=== PATIENT | female | born 1970 | race Two or more races ===

== ENCOUNTER 2024-02-17 09:07 | Outpatient (REF) | payer MEDICAID, SELFPAY ==
--- NOTE | ~2024-02-17 | XR_ITS ---
EXAMINATION: XR WRIST, RIGHT CLINICAL INFORMATION: chronic right wrist pain, swelling COMPARISON: None available. TECHNIQUE: PA, lateral, and oblique views of the right wrist. FINDINGS: The bones and soft tissues are normal. No fracture. Alignment is anatomic with normal joint spaces. No erosions or abnormal soft tissue calcifications. XR/XR wrist RT min 3V IMPRESSION: Normal right wrist. Electronically signed by: Genaro Thompson MD 02/17/2024 02:11 PM GAVINO
== END 2024-02-17 09:08 | disposition home or self-care (01) ==
LOC: HO.HHCX 09:07
PROVIDERS: Visit Provider Registered Nurse
DX: M25.531 Pain in right wrist (principal); G89.29 Other chronic pain
CPT/HCPCS: 73110

== ENCOUNTER → 2024-02-17 09:08 | Outpatient (BNV) | payer MEDICAID, SELFPAY | PROVIDERS: Visit Provider Radiology Diagnostic Radiology | DX: M25.531 Pain in right wrist (principal) | CPT/HCPCS: 73110 ==

== ENCOUNTER 2024-06-02 | Outpatient (REF) | payer MEDICAID, SELFPAY ==
[2024-06-05 13:58] LABS: HPV Genotype 16 Negative (Negative); HPV Genotype 18 Negative (Negative); HPV High Risk Negative (Negative)
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
== END 2024-06-02 00:01 | disposition home or self-care (01) ==
LOC: HO.LNP
PROVIDERS: Visit Provider Advanced Practice Midwife
DX: N63.11 Unspecified lump in the right breast, upper outer quadrant (principal); N95.0 Postmenopausal bleeding
CPT/HCPCS: 87626; 88175

== ENCOUNTER 2024-06-02 13:43 | Outpatient (REF) | payer MEDICAID, SELFPAY ==
--- NOTE | ~2024-06-02 | US_ITS ---
EXAMINATION: US PELVIS CLINICAL INFORMATION: Postmenopausal bleeding. COMPARISON: None available. TECHNIQUE: Ultrasound of the pelvis is performed using both transabdominal and transvaginal transducers along with Doppler. Transvaginal imaging is performed due to inadequate visualization transabdominally. FINDINGS: Uterus: The uterus is anteverted , retroflexed, and measures 11.8 x 3.1 x 5.2 cm. Normal-appearing cervix. The double wall endometrial thickness is 3 mm. It is uniform. The uterus is smooth in contour and has normal myometrial echogenicity. No visible fibroid. Adnexa: Neither ovary could be definitively visualized. There is no pelvic ascites or fluid collection. There are no adnexal masses. US/US pelvic and transvaginal IMPRESSION: 1. Ovaries could not be visualized. 2. Normal-appearing uterus and endometrium. 3. No free pelvic fluid. Electronically signed by: Corwin Calles MD 06/02/2024 03:00 PM EDT
--- OUTSIDE RECORDS SUMMARY | 2024-06-02 16:54 | XMS_ITS | Encounter Summary ---
Author Organization [facility] Address [address] [place] [address] [address] [address] Care Team Providers Care Acidizer Name Role Phone Birdie Clayton Primary Care Provider Reason for Referral * Consultation (Routine) - Pending Review Specialty Diagnoses / Procedures Referred By Gee dugan Referred To Contact Family Medicine Diagnoses Chronic right-sided low back pain with right-sided sciatica Birdie Clayton FNP [address] [place] [address] Phone: tel: fax: Referral ID Status Reason Start Date Expiration Date Visits Requested Visits Authorized [id number] Pending Review Consult and Treat 06/01/2024 06/01/2025 1 1 Encounter Details Date Type Department Care Team (Late st Contact Info) Description 06/01/2024 Orders Only [facility] [address] [place], [place] [phone] Birdie Clayton FNP [address], [place] [id number] Chronic right-sided low back pain with right-sided sciatica (Primary Dx) Social History Tobacco Use Types Packs/Day Years Used Date Smoking Tobacco: Every Day Cigarettes Passive Smoke Exposure: Current Smokeless Tobacco: Never Alcohol Use Standard Drinks/Week Comments Never 0 (1 standard drink = 0.6 oz pur e alcohol) Depression Answer Date Recorded Patient Health Questionnaire-9 Score 11 06/01/2024 Patient Health Questionnaire-9 Score 11 06/01/2024 Last PHQ-9: Questionnaire Data Not on file 0 06/01/2024 Housing Stability Answer Date Recorded What is your housing situation today? I have kiersten bautista 03/12/[address] you li ve. Do you have problems with any of the following? None of the above 03/12/2024 Food Insecurity Answer Date Recorded Within the past 12 months, y ou worried that your food would run out before you got money to buy more: Sometimes True 2024 Within the past 12 months,th e food you bought just didn't last and you didn't have enough money to get more: Sometimes True 03/12/2024 Transportation Answer Date Recorded In the past 12 months, has l ack of transportation kept you from medical appts, meetings, work or from getting things needed for daily living? Yes, it has kept me from medical appointments or getting medications. 03/12/2024 Utilities Answer Date Recorded In the past 12 months, has t he electric, gas, oil or water company threatened to shut off services in your home? No 03/12/2024 Depression Answer Date Recorded Patient Health Questionnaire-2 Score 3 06/01/2024 Internet Access Answer Date Recorded Internet Access Q1 Yes 03/12/2024 Internet Access Q2 Not on file 03/12/2024 Comments Unknown Sex and Gender Information Value Date Recorded Sex Assigned at Female 03/13/2022 1:16 PM EST Legal Sex Female 10:46 AM EST Gender Identity Female 03/13/2022 1:16 PM EST Sexual Orientation Don't know 03/13/2022 1: 16 PM EST documented as of this encounter Plan of Treatment Upcoming Encounters Date Type Department Care Team (Late st Contact Info) Description 06/17/2024 10:30 AM EDT Clinical Support [facility] [address] [place] [address] Scheduled Referrals Name Type Priority Associated Diagnoses Orde r Schedule [facility]erral to [facility] Outpatient Referral Routine Chronic right-sided low back pain with right-sided sciatica Expected: 06/01/2024 (Approximate), Expires: 06/01/2025 documented as of this encounter Visit Diagnoses Diagnosis Chronic right-sided low back pain with right-sided sciatica- Primary documented in this encounter Additional Health Concerns Assessment Noted Time PHQ-9 Depression Total Score: 11 025 10:35 AM EDT documented as of this encounter Care Teams Acidizer Relationship Specialty Start Date End Date Birdie Clayton FNP [address] [place] [address] PCP - General Family Medicine 05/03/22 documented as of this encounter
--- OUTSIDE RECORDS SUMMARY | 2024-06-02 16:54 | XMS_ITS | Encounter Summary ---
Author Organization [employer] Address [address] [place] [address], [place] [address] Care Team Providers Care Tankage Grinder Operator Name Role Phone Birdie Clayton STOCK TRANSFER CLERK Primary Care Provider [phone] Reason for Referral * Imaging (STAT) - Closed Specialty Diagnoses / Procedures Referred By Contac t Referred To Contact Radiology Diagnoses Postmenopausal bleeding Procedures Us Pelvis complete Marii Graham CNM [address] [place] [address] Phone: tel: fax: [address] Phone: tel: fax: Referral ID Status Reason Start Date Expiration Date Visits Re quested Visits Authorized [id number] Closed 06/02/2024 06/02/2025 1 1 * Imaging (STAT) - Closed Specialty Diagnoses / Procedures Referred By Contac t Referred To Contact Radiology Diagnoses Postmenopausal bleeding Procedures US Pelvis Transvaginal Marii Graham CNM [address] [place] [address] Phone: tel: fax: [address] Phone: tel: fax: Referral ID Status Reason Start Date Expiration Date Visits Re quested Visits Authorized [id number] Closed 06/02/2024 06/02/2025 1 1 * Imaging (Urgent) - Authorized Specialty Diagnoses / Procedures Referred By Contac t Referred To Contact Radiology Diagnoses Unspecified lump in the right breast, upper outer quadrant Procedures BI Mammogram Diagnostic Tomosynthesis Bilateral Marii Graham CNM [address] [place] [address] Phone: tel: fax: [address] Phone: tel: fax: Referral ID Status Reason Start Date Expiration Date V isits Requested Visits Authorized [id number] Authorized 06/02/2024 06/02/2025 1 1 * Imaging (Urgent) - Authorized Specialty Diagnoses / Procedures Referred By Contac t Referred To Contact Radiology Diagnoses Unspecified lump in the right breast, upper outer quadrant Procedures BI US Breast Limited Right Marii Graham CNM [address] [place] [address] Phone: tel: fax: [address] Phone: tel: fax: Referral ID Status Reason Start Date Expiration Date V isits Requested Visits Authorized [id number] Authorized 06/02/2024 06/02/2025 1 1 Reason for Visit * Reason Comments Gynecologic Exam Encounter Details Date Type Department Care Team (Latest Contact Info) Description 06/02/2024 11:00 AM EDT Procedure Visit [facility] [address] [place] [address] Marii Graham CNM [address] [place], [place] Cervical cancer screening (Primary Dx); Unspecified lump in the right breast, upper outer quadrant; Postmenopausal bleeding; Mixed incontinence Social History Tobacco Use Types Packs/Day Years [...] Access Q2 Not on file 03/12/2024 Comments No Sex and Gender Information Value Date Recorded Sex Assigned at Female 03/13/2022 1:16 PM EST Legal Sex Female 10:46 AM EST Gender Identity Female 03/13/2022 1:16 PM EST Sexual Orientation Don't know 03/13/2022 1: 16 PM EST documented as of this encounter Last Filed Vital Signs Vital Sign Reading Time Taken Comments Blood Pressure 140/81 06/02/2024 10:39 AM EDT Pulse 70 06/02/2024 10:39 AM EDT Temperature 36.8 ??C (98.2 ??F) 06/02/2024 10:39 AM E DT Respiratory Rate 20 06/02/2024 10:39 AM EDT Oxygen Saturation 98% 06/02/2024 10:39 AM EDT Inhaled Oxygen Concentration - - Weight 76.3 kg (168 lb 3.2 oz) 06/02/2024 10:39 AM EDT Height 154.9 cm (5' 1 ) 06/02/2024 10:39 AM EDT Body Mass Index 31.78 06/02/2024 10:39 AM EDT documented in this encounter Progress Notes * Marii Graham CNM - 06/02/2024 11:00 AM EDT Subjective Patient ID: Flaca Ryder is a 53 y.o. female who presents for STEPDOWN NURSE visit Last pap 6 years ago, no prior abnormal. No history of STI/vaginal infections. Menopausal at 51. Had 7 days of bleeding in mid-April. No triggering factors. History of incontinence surgery years ago,notes worsening stress/urge incontinence x 1y. No other vaginal or urinary symptoms. No current partner, not sexually active in several years. Lives with 17 y old child. No personal fracture, no parental hip fracture. Some vasomotor symptoms. Pain from arthritis bothersome, has been referred to pain clinic. Review of Systems Genitourinary: Negative for dysuria, frequency, genital sores, hematuria, menstrual problem, pelvicpain, urgency, vaginal bleeding, vaginal discharge and vaginal pain. No abnormal pap, no breast pain, no breast mass, no nipple discharge Objective BP (!) 140/81 (BP Location: Left arm, Patient Position: Sitting, BP Cuff Size: Adult) Pulse 70 Temp 98.2 ??F (36.8 ??C) (Temporal) Resp 20 Ht 5' 1 (1.549 m) Wt 168 lb 3.2 oz (76.3 kg) SpO2 98% BMI 31.78 kg/m?? Physical Exam Constitutional: Appearance: Normal appearance. Chest: Breasts: Right: Mass present. No swelling, bleeding, inverted nipple, nipple discharge, skin change or tenderness. Left: Normal. No swelling, bleeding, inverted nipple, mass, nipple discharge, skin change or tenderness. Comments: Diffuse, mobile area of ? Fibrocystic tissue right breast UOQ, mobile. Not noticed on left breast Genitourinary: General: Normal vulva. Labia: Right: No rash, tenderness, lesion or injury. Left: No rash, tenderness, lesion or injury. Vagina: Normal. No signs of injury and foreign body. No vaginal discharge, erythema, tenderness, bleeding or lesions. Cervix: No cervical motion tenderness, discharge, friability, lesion, erythema, cervical bleeding or eversion. Uterus: Normal. Not enlarged and not tender. Adnexa: Right adnexa normal and left adnexa normal. Right: No mass, tenderness or fullness. Left: No mass, tenderness or fullness. Comments: Ovaries non palpable bilaterally. Fair tone with Kegels, mild cystocele with Valsalva. Limited view of cervix Lymphadenopathy: Upper Body: Right upper body: No supraclavicular or axillary adenopathy. Left upper body: No supraclavicular or axillary adenopathy. Neurological: Mental Status: She is alert. Psychiatric: Mood and Affect: Mood normal. Behavior: Behavior normal. Assessment/Plan Diagnoses and all orders for this visit: Cervical cancer screening - Pap Smear Cotest today. Repeat 5y if normal/HPV negative. Report further bleeding. BMD at 65, sooner if new risk factors. Try acupuncture for pain from arthritis, vasomotor symptoms. Unspecified lump in the right breast, upper outer quadrant - BI US Breast Limited Right; Future - BI Mammogram Diagnostic Tomosynthesis Bilateral; Future Will change screening mammogram to dx with right breast ultrasound. Postmenopausal bleeding - US Pelvis Transvaginal; Future - Us Pelvis complete; Future For pelvic ultrasound. Will refer to STEPDOWN NURSE if indicated by results. Report further bleeding. Mixed incontinence Kegels taught for stress incontinence. Let me know if not helpful in next 1-2m and I will refer to urogyn. documented in this encounter Plan of Treatment Upcoming Encounters Date Type Department Care Team (Late st Contact Info) Description 06/17/2024 10:30 AM EDT Clinical Support [facility] [address] [place] [address] Scheduled Orders Name Type Priority Associated Diagnoses Order Schedule Pap Smear Pathology and Cytology Routine Cervical cancer screening Ordered: 06/02/2024 BI US Breast Limited Right Imaging Urgent Unspecified lump in the right breast, upper outer quadrant Expected: 06/02/2024, Expires: 06/02/2025 BI Mammogram Diagnostic Tomosynthesis Bilateral Imaging Urgent Unspecified lump in the right breast, upper outer quadrant Expected: 06/02/2024, Expires: 08/02/2025 Us Pelvis complete Imaging STAT Postmenopausal bleeding Expected: 06/02/2024, Expires: 06/02/2025 documented as of this encounter Procedures Procedure Name Priority Date/Time Associated Diagnosis Comments US PELVIS TRANSVAGINAL STAT 06/02/2024 2:18 PM EDT Postmenopausal bleeding documented in this encounter Results * US Pelvis Transvaginal (06/02/2024 2:18 PM EDT) Anatomical Region Laterality Modality Pelvis Ultrasound 06/02/2024 2:18 PM EDT Narrative 06/02/2024 3:02 PM EDT ? [facility] ?[address] ?[place] [address] ? Ultrasound Report ? Signed ? Patient: Ryder,Flaca ?MR#: [id number] ? : 1970 ?Acct:[id number] ? Age/Sex: 53 / F ?ADM Date: 06/02/24 ? Loc: HO.US ? Attending Dr: Marii Graham CNM ? Ordering Physician: MARII GRAHAM CNM ?? Date of Service: 06/02/24 ?? Procedure(s): US pelvic and transvaginal ?? Accession Number(s): [id number] ? cc: MARII GRAHAM CNM; Birdie Clayton ? EXAMINATION: ? US PELVIS ? CLINICAL INFORMATION: ? Postmenopausal bleeding. ? COMPARISON: ?? None available. ? TECHNIQUE: ?? Ultrasound of the pelvis is performed using both transabdominal and ?? transvaginal transducers along with Doppler. Transvaginal imaging is ?? performed due to inadequate visualization transabdominally. ? FINDINGS: ?? Uterus: ?? The uterus is anteverted , retroflexed, and measures 11.8 x 3.1 x 5.2 ?? cm. ??Normal-appearing cervix. ? The double wall endometrial thickness is 3 mm. ??It is uniform. ? The uterus is smooth in contour and has normal myometrial echogenicity. ?No visible fibroid. ? Adnexa: ?? Neither ovary could be definitively visualized. ??There is no pelvic ?? ascites or fluid collection. There are no adnexal masses. ? US/ pelvic and transvaginal ?? IMPRESSION: ?? 1. Ovaries could not be visualized. ?? 2. Normal-appearing uterus and endometrium. ?? 3. No free pelvic fluid. ? Electronically signed by: ??Corwin Calles MD ??06/02/2024 03:00 PM EDT RP ? Dictated By: ?Corwin Calles MD ? Signed By: ?<Electronically signed by Corwin Calles MD in OV> ?06/02/24 1500 ? DD/ 1418 ? TD/TT: 06/02/24 1428 ? Aircraft De Icer Installer: ? Procedure Note Yolande Crowe - 06/02/2024 [place] [address] Ultrasound Report Signed Patient: Robbi Ryder#: [id number] : 1970Acct:[id number] Age/Sex: 53 / FADM Date: 06/02/24 Loc: HO.US Attending Dr: Marii Graham CNM Ordering Physician: MARII GRAHAM CNM Date of Service: 06/02/24 Procedure(s): US pelvic and transvaginal Accession Number(s): [id number] cc: MARII GRAHAM CNM; [facility] EXAMINATION: US PELVIS CLINICAL INFORMATION: Postmenopausal bleeding. COMPARISON: None available. TECHNIQUE: Ultrasound of the pelvis is performed using both transabdominal and transvaginal transducers along with Doppler. Transvaginal imaging is performed due to inadequate visualization transabdominally. FINDINGS: Uterus: The uterus is anteverted , retroflexed, and measures 11.8 x 3.1 x 5.2 cm. Normal-appearing cervix. The double wall endometrial thickness is 3 mm. It is uniform. The uterus is smooth in contour and has normal myometrial echogenicity. No visible fibroid. Adnexa: Neither ovary could be definitively visualized. There is no pelvic ascites or fluid collection. There are no adnexal masses. US/US pelvic and transvaginal IMPRESSION: 1. Ovaries could not be visualized. 2. Normal-appearing uterus and endometrium. 3. No free pelvic fluid. Electronically signed by: Corwin Calles MD 06/02/2024 03:00 PM EDT Dictated By: Corwin Calles MD Signed By: <Electronically signed by Corwin Calles MD in OV> 06/02/24 1500 DD/ 1418 TD/TT: 06/02/24 1428 Aircraft De I[employer] Installer: us Marii Graham CNM IMG US PROCEDURES Final R esult documented in this encounter Visit Diagnoses Diagnosis Cervical cancer screening- Primary Screening for malignant neoplasm of the cervix Unspecified lump in the right breast, upper outer quadrant Postmenopausal bleeding Mixed incontinence Mixed incontinence urge and stress (male)(female) documented in this encounter Additional Health Concerns Assessment Noted Time PHQ-9 Depression Total Score: 11 025 10:35 AM EDT documented as of this encounter Care Teams Tankage Grinder Operator Relationship Specialty Start Date End Date Birdie Clayton FNP [address] [place] [address] PCP - General Family Medicine 05/03/22 documented as of this encounter
--- OUTSIDE RECORDS SUMMARY | 2024-06-02 16:54 | XMS_ITS | Encounter Summary ---
Author Organization [employer] Address [address] [facility] [address] [place] [address] Care Team Providers Care Supervisor Compressed Yeast Name Role Phone Birdie Clayton CUT ROLL MACHINE OPERATOR Primary Care Provider Encounter Details Date Type Department Care Team (Latest Contact Info) Description 06/01/2024 Travel Social History Tobacco Use Types Packs/Day Years [...] your housing situation today? I have kiersten lily 03/12/[address] you li [...] Description 06/17/2024 10:30 AM EDT Clinical Support [facility] [address] [place] [address] documented as of this encounter Visit Diagnoses Not on filedocumented in this encounter Additional Health Concerns Assessment Noted Time PHQ-9 Depression Total Score: 11 025 10:35 AM EDT documented as of this encounter Care Teams Supervisor Compressed Yeast Relationship Specialty Start Date End Date Birdie Clayton FNP [address] [place] [address] PCP - General Family Medicine 05/03/22 documented as of this encounter
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
--- OUTSIDE RECORDS SUMMARY | 2024-06-02 16:54 | XMS_ITS | Encounter Summary ---
Author Organization [employer] Address [address] [facility] [address] [place] [address] Care Team Providers Care Paper Carrier Name Role Phone Birdie Clayton SPORTS BOOK WRITER Primary Care Provider Encounter Details Date Type Department Care Team (Late st Contact Info) Description 01/15/2023 Abstract [facility] MEDICINE [address] [place], [place] [phone] Justyna Couch Social History Tobacco Use Types Packs/Day Years Used Date Smoking Tobacco: Every Day Cigarettes Smokeless Tobacco: Never Alcohol Use Standard Drinks/Week Comments Never 0 (1 standard drink = 0.6 oz pur e alcohol) Depression Answer Date Recorded Patient Health Questionnaire-9 Score 24 05/03/2022 Housing Stability Answer Date Recorded What is your housing situation today? I have housing today, but I am worried about losing housing in the future 12/18/[address] you li ve. Do you have problems with any of the following? None of the above 12/18/2022 Food Insecurity Answer Date Recorded Within the past 12 months, y ou worried that your food would run out before you got money to buy more: Never True 12/18/2022 Within the past 12 months,th e food you bought just didn't last and you didn't have enough money to get more: Never True Transportation Answer Date Recorded In the past 12 months, has l ack of transportation kept you from medical appts, meetings, work or from getting things needed for daily living? No 12/18/2022 Utilities Answer Date Recorded In the past 12 months, has t he electric, gas, oil or water company threatened to shut off services in your home? No 12/18/2022 Depression Answer Date Recorded Patient Health Questionnaire-2 Score 6 05/03/2022 Comments Unknown Sex and Gender Information Value [...] Description 06/17/2024 10:30 AM EDT Clinical Support [facility] MEDICINE [address] [place] [address] documented as of this encounter Visit Diagnoses Not on filedocumented in this encounter Additional Health Concerns Assessment Noted Time PHQ-9 Depression Total Score: 24 023 9:22 AM EDT documented as of this encounter Care Teams Paper Carrier Relationship Specialty Start Date End Date Birdie Clayton FNP [address] [place] [address] PCP - General Family Medicine 05/03/22 documented as of this encounter
--- OUTSIDE RECORDS SUMMARY | 2024-06-02 16:54 | XMS_ITS | Encounter Summary ---
Author Organization [employer] Address [address] [facility] [address] [place] [address] Care Team Providers Care Wireless Construction Manager Name Role Phone Birdie Clayton [facility] Primary Care Provider [phone] Reason for Visit * Reason Comments Med Refill Encounter Details Date Type Department Care Team ([facility] st Contact Info) Description 04/30/2024 Refill [facility] MEDICINE [address] [place], [place] [phone] Birdie Clayton [facility] [address] [place] [address] Anxiety Social History Tobacco Use Types Packs/Day Years Used Date Smoking Tobacco: Every Day Cigarettes Passive Smoke Exposure: Current Smokeless Tobacco: Never Alcohol Use Standard Drinks/Week Comments Never 0 (1 standard drink = 0.6 oz pur e alcohol) Depression Answer Date Recorded Patient Health Questionnaire-9 Score 24 01/29/2024 Patient Health Questionnaire-9 Score 24 01/29/2024 Last PHQ-9: Questionnaire Data Not on file 1 03/31/2023 Housing Stability Answer Date Recorded What is [...] Date Recorded Patient Health Questionnaire-2 Score 6 01/29/2024 Internet Access Answer Date Recorded Internet Access [...] Description 06/17/2024 10:30 AM EDT Clinical Support [facility] MED[facility] [address] [place] [address] documented as of this encounter Visit Diagnoses Diagnosis Anxiety Anxiety state, unspecified documented in this encounter Additional Health Concerns Assessment Noted Time PHQ-9 Depression Total Score: 24 024 10:11 AM EST documented as of this encounter Care Teams Wireless Construction Manager Relationship Specialty Start Date End Date Birdie Clayton FNP [address] [place] [address] PCP - General Family Medicine 05/03/22 documented as of this encounter
--- OUTSIDE RECORDS SUMMARY | 2024-06-02 16:54 | XMS_ITS | Encounter Summary ---
Author Organization [facility] [employer] [facility] Address [address] [facility] [address] h [address] [place] [phone] Care Team Providers Care Marine Fireman Name Role Phone Birdie Clayton [facility] Primary Care Provider Reason for Visit * Reason Comments Med Refill Encounter Details Date Type Department Care Team (Late st Contact Info) Description 05/21/2024 Refill [facility] MED[facility]INE [address] [place], [place] [phone] Birdie Clayton [facility] [address] [place] [address] Chronic bilateral low back pain without sciatica; Anxiety Social History Tobacco Use Types Packs/Day [...] PM EST documented as of this encounter Miscellaneous Notes * Telephone Encounter - Celeste Pandey - 06/02/2024 3:37 PM EDT I called the pt to offer a CDTM Smoking appt, pt wasn't at home and asked to be call tomorrow documented in this encounter Plan of Treatment Upcoming Encounters Date Type Department Care Team (Late st Contact Info) Description 06/17/2024 10:30 AM EDT Clinical Support [facility] MEDICINE [address] [place] [address] documented as of this encounter Visit Diagnoses Diagnosis Chronic bilateral low back pain without sciatica Anxiety Anxiety state, unspecified documented in this encounter Additional Health Concerns Assessment Noted Time PHQ-9 Depression Total Score: 24 024 10:11 AM EST documented as of this encounter Care Teams Marine Fireman Relationship Specialty Start Date End Date Birdie Clayton FNP [address] [place] [address] PCP - General Family Medicine 05/03/22 documented as of this encounter
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
--- OUTSIDE RECORDS SUMMARY | 2024-06-02 16:54 | XMS_ITS | Encounter Summary ---
Author Organization [employer] Address [address] [facility] 7t [place] [address] Care Team Providers Care Construction Safety Manager Name Role Phone Birdie Clayton CUSTOMER SUPPORT PROFESSIONAL Primary Care Provider [phone] Encounter Details Date Type Department Care Team (Latest Contact Info) Description 06/02/2024 Travel Social History Tobacco Use Types Packs/Day [...] Description 06/17/2024 10:30 AM EDT Clinical Support [facility] [address] [place] [address] documented as of this encounter Visit Diagnoses Not on filedocumented in this encounter Additional Health Concerns Assessment Noted Time PHQ-9 Depression Total Score: 11 025 10:35 AM EDT documented as of this encounter Care Teams Construction Safety Manager Relationship Specialty Start Date End Date Birdie Clayton FNP [address] [place] [address] PCP - General Family Medicine 05/03/22 documented as of this encounter
== END 2024-06-02 13:44 | disposition home or self-care (01) ==
LOC: HO.US 13:43
PROVIDERS: PCP Registered Nurse; Visit Provider Advanced Practice Midwife
DX: N95.0 Postmenopausal bleeding (principal)
CPT/HCPCS: 76830; 76856

== ENCOUNTER → 2024-06-02 13:53 | Outpatient (BNV) | payer MEDICAID, SELFPAY | PROVIDERS: PCP Registered Nurse; Visit Provider Radiology Diagnostic Radiology | DX: N95.0 Postmenopausal bleeding (principal) | CPT/HCPCS: 76830; 76856 ==

== ENCOUNTER 2024-06-03 09:19 | Outpatient (AMB) | payer MEDICAID, SELFPAY ==
--- NOTE | 2024-06-03 09:25 | A.OFFVIS_ITS ---
Vital Signs 06/03/24 09:36 Height 5 ft 1 in Weight 169 lb BMI 31.9 BP 161/73 H Blood Pressure Location Rt brachial Position Sitting Pulse 72 Intake Visit Reasons: External hemorrhoids Intake Note: Patient referred by Dr. Flores Jeff for external hemorrhoids. Present for months. Patient c/o: constipation. Miralax not helping. Eats high fiber products. Of note: GI waitlist for screening colonoscopy. Accompanied by: Self / Same As Patient Allergies No Known Allergies Allergy (Unverified 06/03/24 09:31) HPI Comments Details: Patient presents with a longstanding history of symptomatic hemorrhoids. She has had this since her pregnancies which over 30 years ago. She complains of pain more bleeding, and swelling. She was hard bowel movements were stone help the situation. She has never had colonoscopy before. She otherwise tolerating a diet. Although infrequently does occasional anorectal intercourse. This has not been recently. No change in stool caliber. No other anorectal symptoms. Chart was reviewed and patient evaluated. [facility] Medical History (Updated 06/03/24 @ 09:33 by VINCE Mason) Muscle spasms of both lower extremities Sciatica Arthritis Depression Surgical History (Updated 06/03/24 @ 09:58 by Harry Sparrow MD) Hx laparoscopic cholecystectomy Hx of section Social History (Updated 06/03/24 @ 09:35 by VINCE Mason) Alcohol intake: current Alcohol intake frequency: holidays/special occasions only Cigarettes Per Day: 2 Substance Use Type: Marijuana Physical Exam Vital Signs: Last Vital Signs Pulse 72 06/03/24 09:36 BP 161/73 H 06/03/24 09:36 BMI result Body Mass Index 31.9 Chest Other: Chest sounds bilaterally, HS 1 in 2 GI Other: Abdomen is soft, benign. Rectal exam demonstrates several large external and internal hemorrhoids. Incidental finding is a roughly 4 x 3 cm left mid buttock sebaceous cyst. Assessment & Plan Assessment & Plan (1) Hemorrhoid: Code(s): K64.9 - Unspecified hemorrhoids Category: Surgical (2) Sebaceous cyst: Code(s): L72.3 - Sebaceous cyst Category: Surgical Plan Patient would like to have these hemorrhoids excised. Risks, benefits, and alternatives of the procedure reviewed with the patient included but not limited to bleeding, infection, significant pain, numbness, pain, scarring, incontinence and the patient wishes to proceed. All questions answered. We will also arrange for left mid buttock cyst excision which he would also like to have removed. Risks, benefits, alternatives of this were reviewed with the patient was well and included but not limited to bleeding, infection, recurrence, numbness, pain, scarring the patient wished to proceed. All questions answered. Patient will receive a many bowel prep day prior. Coding Level of Care Code New Pt Level 5 (44230) Diagnoses Hemorrhoid K64.9 Sebaceous cyst L72.3
[2024-06-03 09:36] VITALS: BP 161/73; PULSE 72; BMI 31.9
--- OUTSIDE RECORDS SUMMARY | 2024-06-03 10:12 | XMS_ITS | Encounter Summary ---
Author Organization [employer] [facility] Address [address] [place] [address] Care Team Providers Care Rn Recruitment Name Role Phone Birdie Clayton Primary Care Provider [phone] Reason for Referral * Consultation (Routine) - Authorized Specialty Diagnoses / Procedures Referred By Gee dugan Referred To Contact Orthopaedic Surgery Diagnoses Chronic pain of right wrist Birdie Clayton FNP [address] [place] [address] Phone: tel: fax: [facility] [address] [place] [address] Drive [address] [place], [place] Phone: tel: fax: Referral ID Status Reason Start Date Expiration Date Visits Requested Visits Authorized [id number] Authorized Specialty Services Required 06/01/2024 06/01/2025 6 6 * Consultation (Routine) - Pending Review Specialty Diagnoses / Procedures Referred By Gee dugan Referred To Contact Pharmacy Diagnoses Tobacco dependence Birdie Clayton FNP [address] [place] [address] Phone: tel: fax: Referral ID Status Reason Start Date Expiration Date Visits Requested Visits Authorized [id number] Pending Review Consult and Treat 06/01/2024 06/01/2025 1 1 * Consultation (Routine) - Closed Specialty Diagnoses / Procedures Referred By Gee dugan Referred To Contact Physical Therapy Diagnoses Chronic right-sided low back pain with right-sided sciatica Birdie Clayton FNP [address] [place] [address] Phone: tel: fax: [facility] Physical Therapy [address] [place], [place] Phone: tel: fax: Referral ID Status Reason Start Date Expiration Date V isits Requested Visits Authorized [id number] Closed Specialty Services Required 06/01/2024 06/01/2025 20 20 Reason for Visit * Reason Comments Follow-up Encounter Details Date Type Department Care Team ([facility] st Contact Info) Description 06/01/2024 9:45 AM EDT Office Visit [facility] [address] [place], [place] [phone] Birdie Clayton FNP [address] [place] [address] Essential hypertension (Primary Dx); Chronic right-sided low [...] in this encounter Progress Notes * [facility], DIPLOMATIC OFFICER - 06/01/2024 9:45 AM EDT SUBJECTIVE: Flaca [...] drug use: Occasional crack use when in [place] (has not used when in [place]) Patient Active Problem List Diagnosis Essential hypertension [...] de Quervain's tenosynovitis - Will refer to [facility] Ortho for further evaluation Anxiety/panic - Accepts [...] facility-administered medications on file prior to visit. Danish Translation: Provided by [facility] staff member VINCE Esquivel documented in this encounter Plan of Treatment Upcoming Encounters Date Type Department Care Team (Late st Contact Info) Description 06/17/2024 10:30 AM EDT Clinical Support [facility] [address] [place] [phone] Scheduled Referrals Name Type Priority Associated Diagnoses [...] EDT NSR. ??See scanned report. Birdie Clayton [facility] ECG ORDERABLES Final Result documented in this [...] documented as of this encounter Care Teams Rn Recruitment Relationship Specialty Start Date End Date Birdie ClaytonCHUN [address] [place] [address] PCP - General Family Medicine 05/03/22 documented as of this encounter
--- OUTSIDE RECORDS SUMMARY | 2024-06-03 10:12 | XMS_ITS | Clinical Summary ---
Author Organization [employer] Address [address] [place] [address] 7t [place] [address] Care Team Providers Care Stenotypist Name Role Phone Birdie Clayton TOP TRIMMER Primary Care Provider [phone] Allergies No known active allergies Medications * [...] 9:36 AM EDT): Patient of [facility] here for a physical exam required [...] 11:00 AM EDT Procedure Visit [facility] [address] [place] [address] Silvino Graham CNM Cervical cancer screening (Primary Dx); Unspecified lump in the right breast, upper outer quadrant; Postmenopausal bleeding; Mixed incontinence 06/02/2024 Travel 06/01/2024 9:45 AM EDT Office Visit [facility] [address] [place] [address] Birdie Clayton FNP Essential hypertension (Primary Dx); Chronic right-sided low back pain with right-sided sciatica; Chronic pain of right wrist; Tobacco dependence; Dietary counseling; Exercise counseling 06/01/2024 Orders Only [facility] [address] [place] [address] Birdie Clayton FNP Chronic right-sided low back pain with right-sided sciatica (Primary Dx) 06/01/2024 Travel 05/21/2024 Patient Outreach [facility] [address] [place] [address] Birdie Clayton FNP Pre-visit Planning (SDOH screening completed on 03/12/2024) 05/21/2024 Refill [facility] [address] [place] [address] Birdie Clayton FNP Chronic bilateral low back pain without sciatica; Anxiety 05/12/2024 10:30 AM EDT Office Visit [facility] [address] [place] [address] Tarka, Meenakshi, OD Macular corneal dystrophy of both eyes (Primary Dx); Other disorders of optic nerve, not elsewhere classified, right eye; Combined forms of age-related cataract of both eyes 05/12/2024 Travel 05/08/2024 Telephone [facility] [address] [place] [address] Birdie Clayton FNP No Show 05/07/2024 Telephone [facility] [address] [place] [address] ClintonBirdie [facility] chart prep 05/01/2024 Population Health Risk Score [facility] [address] [place] [phone] Provider, Population Health Generic 04/30/2024 9:30 AM EDT Office Visit [facility] [address] [place] [address] Ernesto Langford MD Breast cancer screening by mammogram (Primary Dx); Colon cancer screening; Cervical cancer screening; Routine physical examination; Encounter for immunization 04/30/2024 Refill [facility] [address] [place] [address] Birdie Clayton FNP Anxiety 04/30/2024 Patient Outreach [address] [address] ClintonBirdie TOP TRIMMER Pre-visit Planning ((Unable to reach for PVP screening, LVM)) 04/30/2024 Travel 04/20/2024 Patient Outreach [facility] [address] [place] [address] ClintonBirdie FNP Pre-visit Planning (SDOH screening was completed on 03/12/2024) 04/09/2024 9:00 AM EST Office Visit [facility] [address] [place] [address] Meenakshi Laws, OD Other disorders of optic nerve, not elsewhere classified, right eye (Primary Dx); Reduced visual acuity; Macular corneal dystrophy of both eyes; Combined forms of age-related cataract of both eyes; Regular astigmatism, bilateral; Dr[place]en of macula of both eyes 04/09/2024 Travel 04/08/2024 Travel 03/16/2024 Telephone [facility] [address] [place] [address] Birdie Clayton FNP Chart Prep 03/12/2024 Patient Outreach [address] [address] ClintonBirdie FNP Care Coordination ([facility] outreach for SDOH PT-1 and food needs-referral completed /) 03/12/2024 Patient Outreach [address] [address] Birdie Clayton FNP Pre-visit Planning (SDOH Screening positive and Tobacco screening negative) 03/12/[address] [address] Birdie Clayton FNP Letter for Housing (The patient requested a lettter, for [employer]. She stated that she has an apartment, but does not have furniture. They agreed to provide her with a voucher for furniture, if she provides them with a letter of necessity from her PCP.) 03/12/2024 Telephone [facility] [address] [place] [address] Day Swartz, RN 03/11/2024 Orders Only [facility] [address] [place] [address] [facility] Mixed hyperlipidemia (Primary Dx) 03/06/2024 1:00 PM EST Office Visit [facility] [address] [place] [address] Elvi Phillips MD External thrombosed hemorrhoids (Primary Dx) 03/06/2024 Orders Only [facility] [address] [place] [address] [facility] 03/06/2024 Travel 03/06/2024 Telephone [facility] [address] [place] [address] Sarika Guillen, FLORESITA [employer]spot 03/06/[address] [address] Sarika Guillen, pipeline operator from Last 3 Months Immunizations Name Administration [...] 10:30 AM EDT Clinical Support [facility] [address] [place] [address] Health Maintenance Due Date Last [...] EDT Narrative 06/02/2024 3:02 PM EDT ? [facility] ?[address] ?[place] [address] ? Ultrasound Report ? Signed ? Patient: Ryder,Flaca ?MR#: [id number] ? : 1970 ?Acct:[id number] ? Age/Sex: 53 / F ?ADM Date: 06/02/24 ? Loc: HO.US ? Attending Dr: Silvino Graham CNM ? Ordering Physician: SILVINO GRAHAM CNM ?? Date of Service: 06/02/24 ?? Procedure(s): US pelvic and transvaginal ?? Accession Number(s): [id number] ? cc: SILVINO GRAHAM CNM; Birdie Clayton [facility] ? EXAMINATION: ? US PELVIS ? CLINICAL [...] DD/ 1418 ? TD/TT: 06/02/24 1428 ? Straight Pin Making Machine Operator: ? Procedure Note Donreginater, Image - 06/02/[address] [address] Ultrasound Report Signed Patient: Robbi Ryder#: [id number] : 1970Acct:[id number] Age/Sex: 53 / FADM Date: 06/02/24 Loc: .US Attending Dr: Silvino Graham CNM Ordering Physician: SILVINO GRAHAM CNM Date of Service: 06/02/24 Procedure(s): US pelvic and transvaginal Accession Number(s): [id number] cc: SILVINO GRAHAM CNM; [facility] EXAMINATION: US [...] 06/02/24 1500 DD/ 1418 TD/TT: 06/02/24 1428 Straight Pin Making Machine Operator: Silvino Graham CNM IMG US PROCEDURES Final R esult * ECG 12 lead (06/01/2024 12:30 PM EDT) Chuck ForrestBirdie santos FNP - 06/01/2024 12:30 PM EDT NSR. ??See scanned report. Birdie [facility] ECG ORDERABLES Final Result * Automated [...] 1:23 PM EST) Syphilis Screen Nonreactive Nonreactive [facility] Blood 03/06/2024 1:23 PM EST 03/06/2024 4:00 PM EST [facility] TOP TRIMMER LAB BLOOD ORDERABLES Final Re sult [facility] [address] [place] [phone] * T-SPOT??.TB (03/06/2024 1:23 PM EST) T Spot TB Negative Negative [facility] Comment:A negative test resu lt does [...] as aquantitative test. TS PANEL A 0 [facility] TS PANEL B 0 [facility] Negative Control Passed [facility] Positive Control Passed [facility] Comment:For additional infor louie, please refer [email or web address]/faq/[email or web address](This link is being provided for informational/educational purposes only.)THIS TEST WAS PERFORMED AT:[employer]/[id number] [place] [address]ASNDAGXJEWELS AGUILAR MD,PHD 03/06/2024 1:23 PM EST 03/06/2024 4:00 PM EST [facility] LAB BLOOD ORDERABLES Final Re sult Performing Organization Address [facility] Co de Phone Number [facility] [address] [place] [phone] * Hepatitis C Antibody with Reflex to HCV, RNA, Quantitative, Real-Time PCR (03/06/2024 1:23 PM EST) Hepatitis C Antibody Nonreactive Nonreactive [facility] Comment:Antibodies to HCV no t detected; does not exclude early acuteHCV infection. Blood Venous blood specimen / Unknown 03/06/2024 1:23 PM EST 03/06/2024 4:00 PM EST [facility] LAB BLOOD ORDERABLES Final Re sult Performing Organization Address [facility] Co de Phone Number [facility] [address] [place] [phone] * Hepatitis B surface antigen, EIA (03/06/2024 1:23 PM EST) Hepatitis B Surface Ag Negative Negative [facility] Blood Venous blood specimen / Unknown 03/06/2024 1:23 PM EST 03/06/2024 4:00 PM EST [facility] LAB BLOOD ORDERABLES Final Re sult Performing Organization Address [facility] Co de Phone Number [facility] [address] [place] [address] [place] [phone] * Hepatitis B Core Antibody, Total (03/06/2024 1:23 PM EST) Hepatitis B Core Antibody Nonreactive Nonreactive [facility] Blood Venous blood specimen / Unknown 03/06/2024 1:23 PM EST 03/06/2024 4:00 PM EST [facility] LAB BLOOD ORDERABLES Final Re sult [facility] [address] [place] [address] [phone] * HIV-1/2 Antigen and Antibodies, Fourth Generation, with Reflexes (03/06/2024 1:23 PM EST) Pathologist [facility] HIV AB/AG Nonreactive Nonreactive [facility] Comment:HIV-1 p24 Ag and/or HIV-1/HIV-2 Ab not detected.A test result that is nonreactive does not exclude thepossibility of exposure to or infection with HIV-1 and/orHIV-2. Nonreactive results in this assay for individualswith prior exposure to HIV-1 and/or HIV-2 may be due toantigen and antibody levels that are below the limit ofdetection of this assay.[employer] [facility] [employer] HIV Ag/Ab Combo assay result andsupplemental assay results should be interpreted inconjunction with the patient's clinical presentation,history and other laboratory results. If the results areinconsistent with clinical evidence, additional testing issuggested to confirm the result. Blood Venous blood specimen / Unknown 03/06/2024 1:23 PM EST 03/06/2024 4:00 PM EST [facility] LAB BLOOD ORDERABLES Final Re sult [facility] [address] [place] [address] [phone] * Hepatitis B Surface Antibody, Qualitative (03/06/2024 1:23 PM EST) ~Hepatitis B Surface Antibody NONREACTIVE Nonreactive [facility] Comment:Nonreactive: < 8.00 mIU/mL Blood Venous blood specimen / Unknown 03/06/2024 1:23 PM EST 03/06/2024 4:00 PM EST [facility] LAB BLOOD ORDERABLES Final Re sult Performing Organization Address [facility] de Phone Number [facility] [address] [place] [phone] * (ABNORMAL) Lipid Panel, Standard (03/06/2024 1:23 PM EST) Pathologist [facility] Triglycerides 179(H) <150 mg/dL [facility] Comment:Desirable Triglyceri de: less than 150 mg/dLBorderline High Triglyceride 150-199 mg/dLHigh Triglyceride: 200-499 mg/dLVery High Triglyceride: greater than or equal to 5OO mg/dL Cholesterol 228(H) <200 mg/dL [facility] Comment:Desirable Cholestero l: less than 200 mg/dLBorderline High Cholesterol: 200-239 mg/dLHigh Cholesterol: greater than 239 mg/dL LDL Cholesterol Calculated 140(H) <100 mg/dL [facility] Comment:Desirable LDL: less than 100 mg/dLNear Optimal/Above Optimal LDL: 110- 129 mg/dLBorderline High LDL: 130-159 mg/dLHigh LDL: 160-189 mg/dLVery High LDL: greater than or equal to 190 mg/dL HDL Cholesterol 53 >40 mg/dL [facility] Comment:Desirable HDL: great er than 40 mg/dL Note: This HDL assay may give artificially low results in patients with liver disease. Blood Venous blood specimen / Unknown 03/06/2024 1:23 PM EST 03/06/2024 4:00 PM EST [facility] LAB BLOOD ORDERABLES Final Re sult Performing Organization Address [facility] Co de Phone Number [facility] [address] [place] [address] [phone] * (ABNORMAL) Comprehensive Metabolic Panel (03/06/2024 1:23 PM EST) Sodium 143 135 - 145 mmol/L [facility] Potassium 3.9 3.3 - 5.1 mmol/L [facility] Chloride 108 96 - 108 mmol/L [facility] Carbon Dioxide 28 22 - 29 mmol/L [facility] Anion Gap 11(L) 12 - 20 [facility] Urea Nitrogen (BUN) 12 9 - 16 mg/dL [facility] Creatinine, Serum 0.71 0.5 - 1.4 mg/dL [facility] Estimated Glomerular Filt Rate >60 [facility] Comment:Chronic Kidney Disea se: Estimated GFR < 60 mL/min/[id number] Kidney Disease: Estimated GFR < 15 mL/min/1.73m2 Glucose 89 60 - 115 mg/dL [facility] Calcium 9.4 8.4 - 10.2 mg/dL [facility] Bilirubin, Total 0.4 0.0 - 1.0 mg/dL [facility] Aspartate Amino Transferase 24 5 - 31 U/L [facility] Alanine Aminotransferase 17 0 - 31 U/L [facility] Total Protein 7.9 6.5 - 8.0 g/dL [facility] Albumin Level 4.4 3.5 - 5.0 g/dL [facility] Alkaline Phosphatase 88 39 - 117 U/L [facility] Blood Venous blood specimen / Unknown 03/06/2024 1:23 PM EST 03/06/2024 4:00 PM EST [facility] LAB BLOOD ORDERABLES Final Re sult [facility] [address] [place] [address] [phone] from Last 3 Months Insurance [facility] C3 HSN PARTIAL Care Teams Stenotypist Relationship Specialty Start Date End Date Birdie Clayton FNP [address] [place] [address] PCP - General Family Medicine 05/03/22
--- OUTSIDE RECORDS SUMMARY | 2024-06-03 10:12 | XMS_ITS | Encounter Summary ---
Author Organization [employer] Address [address] [facility] 7t [place] [address] Care Team Providers Care Golf Range Attendant Name Role Phone Birdie Clayton HOME DAY CARE PROVIDER Primary Care Provider [phone] Encounter Details Date Type Department Care Team (Late st Contact Info) Description 01/15/2023 Abstract [facility] [address] [place], [place] [phone] Justyna Couch Social History Tobacco Use Types [...] Description 06/17/2024 10:30 AM EDT Clinical Support [facility] [address] [place] [address] documented as of this encounter Visit Diagnoses Not on filedocumented in this encounter Additional Health Concerns Assessment Noted Time PHQ-9 Depression Total Score: 24 023 9:22 AM EDT documented as of this encounter Care Teams Golf Range Attendant Relationship Specialty Start Date End Date Birdie Clayton FNP [address] [place] [address] PCP - General Family Medicine 05/03/22 documented as of this encounter
--- OUTSIDE RECORDS SUMMARY | 2024-06-03 10:12 | XMS_ITS | Encounter Summary ---
Author Organization [employer] Address [address] [facility] [address]t [place] [address] Care Team Providers Care Lockstitch Cup Setter Name Role Phone Birdie Clayton BEE BREEDER Primary Care Provider [phone] Encounter Details Date Type Department Care Team [...] Description 06/17/2024 10:30 AM EDT Clinical Support [facility] [address] [place] [address] documented as of this encounter Visit Diagnoses Not on filedocumented in this encounter Additional Health Concerns Assessment Noted Time PHQ-9 Depression Total Score: 11 025 10:35 AM EDT documented as of this encounter Care Teams Lockstitch Cup Setter Relationship Specialty Start Date End Date Birdie Clayton FNP [address] [place] [address] PCP - General Family Medicine 05/03/22 documented as of this encounter
--- OUTSIDE RECORDS SUMMARY | 2024-06-03 10:12 | XMS_ITS | Encounter Summary ---
Author Organization [employer] Address [address] [facility] 7 [place] [address] Care Team Providers Care Supervisor Coil Winding Name Role Phone Birdie Clayton [facility] Primary Care Provider [phone] Reason for Visit * Reason Comments Med Refill Encounter Details Date Type Department Care Team ([facility] st Contact Info) Description 04/30/2024 Refill [facility] MEDICINE [address] [place], [place] [phone] Birdie Clayton [facility] [address] [place] [address] Anxiety Social History Tobacco Use Types Packs/Day [...] Description 06/17/2024 10:30 AM EDT Clinical Support [facility] MEDICINE [address] [place] [address] documented as of this encounter Visit Diagnoses Diagnosis Anxiety Anxiety state, unspecified documented in this encounter Additional Health Concerns Assessment Noted Time PHQ-9 Depression Total Score: 24 024 10:11 AM EST documented as of this encounter Care Teams Supervisor Coil Winding Relationship Specialty Start Date End Date Birdie Clayton FNP [address] [place] [address] PCP - General Family Medicine 05/03/22 documented as of this encounter
--- OUTSIDE RECORDS SUMMARY | 2024-06-03 10:12 | XMS_ITS | Encounter Summary ---
Author Organization [employer] Address [address] [facility] 7t h Floor [place] [id number] Care Team Providers Care Steam Drier Operator Name Role Phone Birdie Clayton [facility] Primary Care Provider [phone] Reason for Visit * Reason Comments Med Refill Encounter Details Date Type Department Care Team (Late st Contact Info) Description 05/21/2024 Refill [facility] MEDICINE [address] [place], [place] [phone] Birdie Clayton [facility] [address] [place] [address] Chronic bilateral low back pain without sciatica; [...] Clinical Support [facility] MEDICINE [address] [place] [address] documented as of this encounter Visit Diagnoses Diagnosis Chronic bilateral low back pain without sciatica Anxiety Anxiety state, unspecified documented in this encounter Additional Health Concerns Assessment Noted Time PHQ-9 Depression Total Score: 24 024 10:11 AM EST documented as of this encounter Care Teams Steam Drier Operator Relationship Specialty Start Date End Date Birdie Clayton FNP [address] [place] [address] PCP - General Family Medicine 05/03/22 documented as of this encounter
--- OUTSIDE RECORDS SUMMARY | 2024-06-03 10:12 | XMS_ITS | Encounter Summary ---
Author Organization [employer] Address [address] [place] [address] Care Team Providers Care Director Of Employee Development Name Role Phone Birdie Clayton ADAPTIVE PHYSICAL EDUCATION SPECIALIST Primary Care Provider [phone] Reason for Referral * Imaging (STAT) - Closed Specialty Diagnoses / Procedures Referred By Contac t Referred To Contact Radiology Diagnoses Postmenopausal bleeding Procedures Us Pelvis complete Marii Graham CNM [address] [place] [address] Phone: tel: fax: [address] Phone: tel: fax: Referral ID Status Reason Start Date Expiration Date Visits Re quested Visits Authorized [id number] Closed 06/02/2024 06/02/2025 1 1 * Imaging (STAT) - Closed Specialty Diagnoses / Procedures Referred By Contac t Referred To Contact Radiology Diagnoses Postmenopausal bleeding Procedures US Pelvis Transvaginal Marii Graham CNM [address] [place] [address] Phone: tel: fax: [address] Phone: tel: fax: Referral ID Status Reason Start Date Expiration Date Visits Re quested Visits Authorized [id number] Closed 06/02/2024 06/02/2025 1 1 * Imaging (Urgent) - Authorized Specialty Diagnoses / Procedures Referred By Contac t Referred To Contact Radiology Diagnoses Unspecified lump in the right breast, upper outer quadrant Procedures BI Mammogram Diagnostic Tomosynthesis Bilateral Marii Graham CNM [address] [place] [address] Phone: tel: fax: [address] Phone: tel: fax: Referral ID Status Reason Start Date Expiration Date V isits Requested Visits Authorized [id number] Authorized 06/02/2024 06/02/2025 1 1 * Imaging (Urgent) - Authorized Specialty Diagnoses / Procedures Referred By Contac t Referred To Contact Radiology Diagnoses Unspecified lump in the right breast, upper outer quadrant Procedures BI US Breast Limited Right Marii Graham CNM [address] [place] [address] Phone: tel: fax: [address] Phone: tel: fax: Referral ID Status Reason Start Date Expiration Date V isits Requested Visits Authorized [id number] Authorized 06/02/2024 06/02/2025 1 1 Reason for Visit * Reason Comments Gynecologic Exam Encounter Details Date Type Department Care Team (Latest Contact Info) Description 06/02/2024 11:00 AM EDT Procedure Visit [facility] MEDICINE [address] [place] [address] Marii Graham CNM [address] [place], [place] Cervical cancer screening (Primary Dx); Unspecified [...] a 53 y.o. female who presents for [facility] B[facility]CHER [facility] PICKER visit Last pap 6 years ago, no [...] Future For pelvic ultrasound. Will refer to FLOWER B[facility]CHER [facility] PICKER if indicated by results. Report further bleeding. Mixed incontinence Kegels taught for stress incontinence. Let me know if not helpful in next 1-2m and I will refer to urogyn. documented in this encounter Plan of Treatment Upcoming Encounters Date Type Department Care Team (Late st Contact Info) Description 06/17/2024 10:30 AM EDT Clinical Support [facility] MEDICINE [address] [place] [address] Scheduled Orders Name Type Priority Associated Diagnoses [...] EDT Narrative 06/02/2024 3:02 PM EDT ? [facility] ?[address] ?[place] [address] ? Ultrasound Report ? Signed ? Patient: Ryder,Flaca ?MR#: [id number] ? : 1970 ?Acct:[id number] ? Age/Sex: 53 / F ?ADM Date: 06/02/24 ? Loc: HO.US ? Attending Dr: Marii Graham CNM ? Ordering Physician: MARII GRAHAM CNM ?? Date of Service: 06/02/24 ?? Procedure(s): US pelvic and transvaginal ?? Accession Number(s): [id number] ? cc: MARII GRAHAM CNM; Birdie Clayton [...] DD/ 1418 ? TD/TT: 06/02/24 1428 ? Fuels Sales Representative: ? Procedure Note Yolande Crowe - 06/02/2024 [place] [address] Ultrasound Report Signed Patient: Robbi Ryder#: [id number] : 1970Acct:[id number] Age/Sex: 53 / FADM Date: 06/02/24 Loc: HO.US Attending Dr: Marii Graham CNM Ordering Physician: MARII GRAHAM CNM Date of Service: 06/02/24 Procedure(s): US pelvic and transvaginal Accession Number(s): [id number] cc: MARII GRAHAM CNM; [facility] EXAMINATION: US PELVIS CLINICAL INFORMATION: Postmenopausal [...] 06/02/24 1500 DD/ 1418 TD/TT: 06/02/24 1428 Fuels Sales Representative: us Marii Graham CNM IMG US PROCEDURES [...] documented as of this encounter Care Teams Director Of Employee Development Relationship Specialty Start Date End Date Birdie Clayton FNP [address] [place] [address] PCP - General Family Medicine 05/03/22 documented as of this encounter
--- OUTSIDE RECORDS SUMMARY | 2024-06-03 10:13 | XMS_ITS | Encounter Summary ---
Author Organization [employer] [facility] Address [address] [place] [address] [place] [address] Care Team Providers Care Map Drafter Name Role Phone Birdie Clayton Primary Care Provider [phone] Reason for Referral * Consultation (Routine) - Pending Review Specialty Diagnoses / Procedures Referred By Gee dugan Referred To Contact Family Medicine Diagnoses Chronic right-sided low back pain with right-sided sciatica Birdie Clayton FNP [address] [place] [address] Phone: tel: fax: Referral ID Status Reason Start Date Expiration Date Visits Requested Visits Authorized [id number] Pending Review Consult and Treat 06/01/2024 06/01/2025 1 1 Encounter Details Date Type Department Care Team (Late st Contact Info) Description 06/01/2024 Orders Only [facility] [address] [place], [place] [phone] Birdie Clayton FNP [address] [place], [place] [phone] Chronic right-sided low back pain with right-sided [...] Description 06/17/2024 10:30 AM EDT Clinical Support [facility] MEDICINE [address] [place] [address] Scheduled Referrals Name Type Priority Associated Diagnoses [...] documented as of this encounter Care Teams Map Drafter Relationship Specialty Start Date End Date Birdie Clayton FNP [address] [place] [address] PCP - General Family Medicine 05/03/22 documented as of this encounter
--- OUTSIDE RECORDS SUMMARY | 2024-06-03 10:13 | XMS_ITS | Encounter Summary ---
Author Organization [employer] Address [address] [facility] 7t [place] [address] Care Team Providers Care Cable Spooler Name Role Phone Birdie Clayton [facility] [employer] Primary Care Provider [phone] Encounter Details Date Type Department Care Team [...] 06/17/2024 10:30 AM EDT Clinical Support [facility] MEDICINE [address] [place] [address] documented as of this encounter Visit Diagnoses Not on filedocumented in this encounter Additional Health Concerns Assessment Noted Time PHQ-9 Depression Total Score: 11 025 10:35 AM EDT documented as of this encounter Care Teams Cable Spooler Relationship Specialty Start Date End Date Birdie Clayton FNP [address] [place] [address] PCP - General Family Medicine 05/03/22 documented as of this encounter
== END 2024-06-03 09:54 | disposition home or self-care (01) ==
PROVIDERS: PCP Registered Nurse; Referring Provider Registered Nurse; Visit Provider Surgery
DX: K64.9 Unspecified hemorrhoids (principal); L72.3 Sebaceous cyst
CPT/HCPCS: 99204

== ENCOUNTER → 2024-06-03 09:19 | Outpatient (BNVA) | payer MEDICAID, SELFPAY | PROVIDERS: PCP Registered Nurse; Referring Provider Registered Nurse; Visit Provider Surgery | DX: K64.9 Unspecified hemorrhoids (principal); L72.3 Sebaceous cyst | CPT/HCPCS: 99202 ==

== ENCOUNTER 2024-07-22 13:28 | Outpatient (REF) | payer MEDICAID, SELFPAY ==
--- NOTE | ~2024-07-22 | XR_ITS ---
EXAMINATION: XR WRIST NAVICULAR RIGHT HISTORY: M79.641 - Pain in right hand COMPARISON: Comparison is made with the prior examination dated 02/17/2024. FINDINGS: Four views of the right wrist including a scaphoid view are submitted. Osseous mineralization is normal. There is no fracture or dislocation. The joint spaces are preserved. The soft tissues are unremarkable. XR/XR wrist RT w scaphoid IMPRESSION: Unremarkable examination of the right wrist. Electronically signed by: Pedro Delgado MD 07/23/2024 07:59 AM EDT
== END 2024-07-22 13:29 | disposition home or self-care (01) ==
LOC: HO.HOSX 13:28
PROVIDERS: PCP Registered Nurse
DX: M79.641 Pain in right hand (principal); M25.531 Pain in right wrist; M65.4 Radial styloid tenosynovitis [de Quervain]; R20.0 Anesthesia of skin
CPT/HCPCS: 20550; 73110; 99212; J1100; J2003

== ENCOUNTER 2024-07-22 13:28 | Outpatient (AMB) | payer MEDICAID, SELFPAY ==
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
--- NOTE | 2024-07-22 14:01 | A.OFFVIS_ITS ---
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 Numbness and tingling in her bilateral hands and digits. Expresses right is greater than left. At night her symptoms are exacerbated and she is unable to get rest. She expresses constant daily pain, numbness and tingling in all her right hand digits. States her daily ADLs are affected such as dressing, bathing, opening jars or bottles, opening doors and etc. She takes gabapentin and OTC pain medication with no relief. 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 Numbness and tingling in her bilateral hands and digits. Expresses right is greater than left. At night her symptoms are exacerbated and she is unable to get rest. She expresses constant daily pain, numbness and tingling in all her right hand digits. States her daily ADLs are affected such as dressing, bathing, opening jars or bottles, opening doors and etc. She takes gabapentin and OTC srinivasa n medication with no relief. [facility] Medical History Anxiety GERD (gastroesophageal reflux disease) HTN (hypertension) Elevated cholesterol Muscle spasms of both lower extremities Sciatica Arthritis Depression Surgical History Hx laparoscopic cholecystectomy Hx of section Social History Alcohol intake: current Alcohol intake frequency: holidays/special occasions only Cigarettes Per Day: 2 Substance Use Type: Marijuana Office Procedures AMB Tendon Injection Tendon Injection 73002-Irsgdc Tendon Sheath Injection All charges added?: Procedure code (CPT) selection complete Assessment & Plan Assessment & Plan (1) De Quervain's tenosynovitis, right: Code(s): M65.4 - Radial styloid tenosynovitis [de Quervain] Category: Medical (2) Numbness of right hand: Code(s): R20.0 - Anesthesia of skin Category: Medical Plan History of Present Illness The patient is a 53-year-old female presenting with hand and wrist pain. She describes an inability to lift objects with her right hand and reports pain in the area. A bump is noted in the joints but has been deemed as a normal anatomical variant. Upon examination, the Patricia test was positive, suggesting De Quervain's tenosynovitis. There is also numbness and tingling in the hand, suggesting potential Carpal Tunnel Syndrome. An EMG and nerve conduction study are recommended for further evaluation. The patient's diabetes status is noted, but it does not affect the current assessment. Review of Systems - Musculoskeletal: Reports pain in the right hand and wrist, difficulty lifting, and a bump in the joints. Denies systemic symptoms. - Neurological: Reports numbness and tingling in the hand. Systems reviewed and are negative except as per HPI and below Physical Exam - Musculoskeletal- Positive Patricia test on the right wrist. Results - Tests and Diagnostics: Recommendation for EMG and nerve conduction study for further evaluation of hand symptoms. Procedure - Steroid injection: Obtained informed consent from the patient. A steroid injection was drawn up to be administered to the affected area of the wrist to manage inflammation related to De Quervain's tenosynovitis. Plan For De Quervain's tenosynovitis, a steroid injection is recommended to reduce inflammation, with informed consent obtained. Diagnostic EMG and nerve conduction studies are advised to investigate symptoms suggestive of Carpal Tunnel Syndrome. A supportive brace is suggested for managing wrist strain. Injection #1: The risks and benefits of a steroid injection including but not limited to risk of damage to blood vessels, nerves, tendons, infection, skin bleaching, failure to improve symptoms, increased pain, and possible need for further injections or other intervention were discussed with the patient and the patient wishes to proceed with the steroid injection. Once consent was obtained, I sterilely prepped the area over the 1st dorsal compartment of the right thumb. I then injected the 1st dorsal compartment with a combination of 1 mL of dexamethasone (4mg/ml), and 1% lidocaine. The patient tolerated the procedure well with no complications and good resolution of their symptoms prior to leaving clinic. If the patient continues to have pain 6-8 weeks following this injection, they may call to schedule appointment to discuss alternative treatment options Patient was informed and verbally consented to the use of an ambient scribe for clinic note documentation during this visit. Discussion Notes I discussed with the patient the likelihood of De Quervain's tenosynovitis and the possibility of Carpal Tunnel Syndrome. For the tendinitis, a steroid injection was recommended to help reduce inflammation, with the risks and benefits thoroughly explained. The patient agreed to the injection. For the neurological symptoms, I advised an EMG and nerve conduction study, stressing their importance in diagnosing potential Carpal Tunnel Syndrome and guiding further treatment. A supportive brace was offered. I emphasized returning for follow-up based on test outcomes or if symptoms persist. Patient Instructions - Consider receiving the steroid injection as discussed to help manage wrist pain. - Plan to get an EMG and nerve conduction study as suggested for further evaluation of hand symptoms. - Use a supportive wrist brace as necessary for additional support. - Follow up with any worsening symptoms or if there are concerns after the procedures. Orders: Orders XR wrist RT w scaphoid 07/22/24 M79.641 - Pain in right hand Coding Level of Care Code Est Pt Level 3 (49872) Diagnoses De Quervain's tenosynovitis, right M65.4 Numbness of right hand R20.0 CPT Codes Tendon Injection - Tendon Injection 1: 06294-Aoaegl Tendon Sheath Injection ([id number])
== END 2024-07-22 15:03 | disposition home or self-care (01) ==
LOC: HO.HOS 13:32
PROVIDERS: PCP Registered Nurse
DX: M65.4 Radial styloid tenosynovitis [de Quervain] (principal); R20.0 Anesthesia of skin
CPT/HCPCS: 20550; 99203

== ENCOUNTER → 2024-07-22 13:45 | Outpatient (BNV) | payer MEDICAID, SELFPAY | PROVIDERS: PCP Registered Nurse; Visit Provider Radiology Diagnostic Radiology | DX: M79.641 Pain in right hand (principal) | CPT/HCPCS: 73110 ==

== ENCOUNTER 2024-08-31 10:05 | Outpatient (REF) | payer MEDICAID, SELFPAY ==
--- NOTE | ~2024-08-31 | XR_ITS ---
EXAMINATION: XR HIP 2 OR MORE VIEWS RIGHT HISTORY: M25.559 - Pain in unspecified hip COMPARISON: There are no prior studies available for comparison. FINDINGS: A single AP view of the pelvis and two views of the right hip are submitted. Osseous mineralization is normal. There is no fracture or dislocation. The joint space is maintained. The soft tissues are unremarkable. XR/XR hip RT min 2V IMPRESSION: Unremarkable examination of the right hip. Electronically signed by: Pedro Delgado MD 08/31/2024 12:58 PM EDT
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
== END 2024-08-31 10:06 | disposition home or self-care (01) ==
LOC: HO.HOSX 10:05
PROVIDERS: Visit Provider Physician Assistant
DX: M54.16 Radiculopathy, lumbar region (principal); M25.551 Pain in right hip
CPT/HCPCS: 73502; 99212

== ENCOUNTER 2024-08-31 11:16 | Outpatient (AMB) | payer MEDICAID, SELFPAY ==
--- NOTE | 2024-08-31 11:33 | MHC.OFFVIS ---
Vital Signs 08/31/24 11:48 Height 5 ft 1 in Weight 177 lb BMI 33.4 Handedness Right Intake Visit Reasons: New prob- Right hip pain Intake Note: Flaca is a 53 year old female who presents today with her cousin for a evaluation of her right hip pain. patient reports ongoing pain for about 5 + years and it is getting worse. She mentions that her pain is on the glutes hip and it moves down her leg. She expresses that her pain makes her leg cramp up. Her pain is worse when she is walking, laying on her side, and sitting/standing for too long. Patient mentions that her pain was better when she was taking tramadol from her PCP. She is not interested in an injection and she is wanting a fill on her tramadol. Career Center Advisor Services: Career Center Advisor Offered & Declined Allergies latex Allergy (Intermediate, Verified 08/31/24 11:48) Rash HPI HPI New prob- Right hip pain: Details: Ms. Ryder is a 53 year old female who presents today accompanied by her cousin for evaluation of right hip pain. Patient reports ongoing pain greater than 5 years he reports that the pain is gradually getting worse. She reports that her pain is mostly located in the glutes and radiates down to the right foot. She also points to the lateral aspect of her hip and thigh were pain also radiates down to her foot. She denies any injury or trauma to the area. [facility] Medical History Anxiety GERD (gastroesophageal reflux disease) HTN (hypertension) Elevated cholesterol Muscle spasms of both lower extremities Sciatica Arthritis Depression Surgical History Hx laparoscopic cholecystectomy Hx of section Social History (Updated 08/31/24 @ 11:49 by Faustina Oquendo) Alcohol intake: current Alcohol intake frequency: holidays/special occasions only Patient Tobacco Use Status: Current everyday Tobacco user Cigarettes Per Day: 2 Substance Use Type: Marijuana Current occupational status: disabled Current occupation: right hand dominant Review of Systems Const All systems reviewed & are unremarkable except as noted in HPI and below Physical Exam Vital Signs: BMI result Body Mass Index 33.4 Const General: cooperative, healthy appearing and no acute distress Resp Effort & Inspection: normal respiratory effort and able to speak in complete sentences Extrem Other: Right hip: Full hip range of motion. Denies any groin pain with internal external rotation. Extreme difficulty with straight leg raise with radiation of pain from her lower back down the right lower extremity. No tenderness to palpation over the greater trochanteric bursa. 4/5 strength with resisted hip flexion, knee extension, abduction, and abduction. Assessment & Plan Assessment & Plan (1) Lumbar radiculopathy, right: Code(s): M54.16 - Radiculopathy, lumbar region Category: Medical Plan Ms. Ryder is a 53 year old female who presents today accompanied by her cousin for evaluation of right hip pain. Patient reports ongoing pain greater than 5 years he reports that the pain is gradually getting worse. She reports that her pain is mostly located in the glutes and radiates down to the right foot. She also points to the lateral aspect of her hip and thigh were pain also radiates down to her foot. She denies any injury or trauma to the area. While in the office today, I have recommended the patient see a window covering sales consultant to further evaluate her spine and radiation of symptoms down the right lower extremity. Patient did have x-rays that were obtained in the office today and negative for any acute fracture, dislocation or osteoarthritis. Although the patient does have some tenderness to palpation of the greater troch bursa this is not consistent with bursitis in this area as it radiates down the entire right lower extremity. In regards to the patient's tramadol I will defer any additional refills to her PCP for pain management. The patient was booked with Dr. Phelps prior to leaving the office today. She will follow up with Orthopedics PRN, sooner if needed. Orders: Orders XR hip RT min 2V Today M25.559 - Pain in unspecified hip Coding Level of Care Code New Pt Level 3 (93645) Diagnoses Lumbar radiculopathy, right M54.16
[2024-08-31 11:48] VITALS: BMI 33.4
== END 2024-08-31 12:16 | disposition home or self-care (01) ==
LOC: HO.HOS 11:16
PROVIDERS: PCP Registered Nurse; Visit Provider Physician Assistant
DX: M54.16 Radiculopathy, lumbar region (principal)
CPT/HCPCS: 99213

== ENCOUNTER → 2024-08-31 11:28 | Outpatient (BNV) | payer MEDICAID, SELFPAY | PROVIDERS: Visit Provider Radiology Diagnostic Radiology | DX: M25.551 Pain in right hip (principal) | CPT/HCPCS: 73502 ==

== ENCOUNTER 2024-10-12 12:14 | Outpatient (REF) | payer MEDICAID, SELFPAY ==
--- OUTSIDE RECORDS SUMMARY | 2024-10-12 13:31 | XMS_ITS | Clinical Summary ---
Author Organization [employer] Address [address] [facility] 7t [place] [address] Care Team Providers Care Retail Sales Assistant Name Role Phone Birdie Clayton [facility] Primary Care Provider [phone] Allergies No known active allergies Medications * [...] 9:36 AM EDT): Patient of [facility] here for a physical exam required [...] organization. Date Type Department Care Team Description 09/17/[address] [facility] MEDICINE [address] [place] [address] Birdie Clayton FNP chart prep 09/14/2024 Patient Outreach [facility] [address] [place] [address] Birdie Clayton FNP Pre-visit Planning ([facility] screening is completed) 08/04/2024 Travel 07/22/2024 Orders Only [facility] External Provider, [facility] from Last 3 Months Immunizations Immunization Administration [...] Care Team (Late st Contact Info) Description 11/06/2024 11:00 AM EDT Office Visit [facility] MEDICINE [address] [place] [address] [facility] [address] [place] [address] 11/12/2024 10:30 AM EDT Office Visit [facility] OPTOMETRY [address] [place] [address] Meenakshi Laws, OD [address] [place] [address] Health Maintenance Due Date Last Done Comments [...] W SCAPHOID Routine 07/22/2024 1:49 PM EDT HPV DNA, LOW/HIGH RISK Routine 06/02/2024 11:12 AM EDT PAP SMEAR Routine 06/02/2024 11:12 AM EDT Cervical cancer screening HEPATITIS C AB W/REFL TO HCV RNA, [...] PM EDT Narrative 07/23/2024 8:01 AM EDT [facility] [address] [place] [address] [place] [address] XRay Report Signed Patient: Flaca Ryder MR#: [id number] : 1970 Acct:[id number] Age/Sex: 53 / F ADM Date: 07/22/24 Loc: THEA Attending Dr: Matthieu BALES Ordering Physician: Matthieu Pedroza Date of Service: 07/22/24 Procedure(s): XR wrist RT w scaphoid Accession Number(s): [id number] cc: Matthieu Pedroza; [facility] EXAMINATION: XR WRIST NAVICULAR RIGHT HISTORY: M79.641 [...] 07/23/24 0759 DD/ 1349 TD/TT: 07/22/24 1349 Rock Room Worker: Procedure Note Donotuseinterpreter, Image - 07/23/2024 [facility] [address] [place] [address] [place] [address] XRay Report Signed Patient: Robbi Ryder#: [id number] : 1970Acct:[id number] Age/Sex: 53 / FADM Date: 07/22/24 Loc: HO.HOSX Attending Dr: Matthieu BALES Ordering Physician: Matthieu Pedroza Date of Service: 07/22/24 Procedure(s): XR wrist RT w scaphoid Accession Number(s): [id number] cc: Matthieu Pedroza; [facility] EXAMINATION: XR WRIST NAVICULAR RIGHT HISTORY: M79.641 [...] 07/23/24 0759 DD/ 1349 TD/TT: 07/22/24 1349 Rock Room Worker: [facility] External Provider IMG XR PROCEDURES Edited Result - Final * HPV DNA, Low/High Risk (06/02/2024 11:12 AM EDT) HPV High Risk Negative Negative [facility] HPV Genotype 16 Negative Negative [facility] HPV Genotype 18 Negative Negative [facility] Comment:HPV testing performe d at [facility] (CLIA#[id number]), [address] [place] [address].Testing for HPV was performed using the Teepix DAAYMI 6800system. The presence of HPV in the [...] AM EDT 06/03/2024 8:20 AM EDT Silvino LONG LAB BLOOD ORDERABLES Ana l Result [facility] [address] [place] [phone] * Pap Smear (06/02/2024 11:12 AM EDT) Swab Cervix uteri structure / Unknown 06/02/2024 11:12 AM EDT 06/03/2024 8:20 AM EDT Narrative [facility] - 06/08/2024 9:48 AM EDT ----- ------- Name: Flaca Ryder Age/Sex: 53/F : 1970 Unit#: [id number] Attend Dr: Re06/02/24 Status: PRE REF Location: [facility] Disch: ----- ------- SPEC : [id number] RECD: 06/03/24 STATUS: JOSÉ SANTO NUM: [id number] JEAN CALUDE: 06/02/24-[address] [facility] [address]: SILVINO GRAHAM [facility] ENTERED: 06/03/24 SP TYPE: Pap Smr OT : ORDERED: Pap Smear Interpretation Satisfactory for evaluation. Negative for intraepithelial lesion or malignancy. No endocervical cells seen. Coccobacilli consistent with shift in vaginal anel. HPV High Risk: Negative HPV Genotyping 16: Negative HPV Genotyping 18: Negative Clinical Information LMP:Unknown date Previous PAP test:Unknown date/findings Material Received ThinPrep-Cervical ----- ------- Signed (signature on file) JEOY Fontenot (ASCP) 06/08/24 0970 ----- ------- END OF REPORT Silvino Graham [facility] LAB CYTOLOGY ORDERABLES F inal Result Performing Organization Address [facility]/ZIP Co de Phone Number [facility] [address] [place] [address] [phone] * Hepatitis C Antibody with Reflex to HCV, RNA, Quantitative, Real-Time PCR (03/06/2024 1:23 PM EST) Hepatitis C Antibody Nonreactive Nonreactive [facility] Comment:Antibodies to HCV no t detected; does not exclude early acuteHCV infection. Blood Venous blood specimen / Unknown 03/06/2024 1:23 PM EST 03/06/2024 4:00 PM EST [facility] LAB BLOOD ORDERABLES Final Re sult Performing Organization Address [facility] Co de Phone Number [facility] [address] [place] [address] [phone] * HIV-1/2 Antigen and Antibodies, Fourth Generation, with Reflexes (03/06/2024 1:23 PM EST) HIV AB/AG Nonreactive Nonreactive [facility] Comment:HIV-1 p24 Ag and/or HIV-1/HIV-2 Ab not detected.A test result that is nonreactive does not exclude thepossibility of exposure to or infection with HIV-1 and/orHIV-2. Nonreactive results in this assay for individualswith prior exposure to HIV-1 and/or HIV-2 may be due toantigen and antibody levels that are below the limit ofdetection of this assay.The AnyLeaf HIV Ag/Ab Combo assay result andsupplemental assay results should be interpreted inconjunction with the patient's clinical presentation,history and other laboratory results. If the results areinconsistent with clinical evidence, additional testing issuggested to confirm the result. Blood Venous blood specimen / Unknown 03/06/2024 1:23 PM EST 03/06/2024 4:00 PM EST [facility] LAB BLOOD ORDERABLES Final Re sult Performing Organization Address [facility] de Phone Number [facility] [address] [place] [phone] * (ABNORMAL) Lipid Panel, Standard (03/06/2024 1:23 PM EST) Triglycerides 179(H) <150 mg/dL [facility] Comment:Desirable Triglyceri de: less than 150 mg/dLBorderline High Triglyceride 150-199 mg/dLHigh Triglyceride: 200-499 mg/dLVery High Triglyceride: greater than or equal to 5OO mg/dL Cholesterol 228(H) <200 mg/dL [facility] Comment:Desirable Cholestero l: less than 200 mg/dLBorderline High Cholesterol: 200-239 mg/dLHigh Cholesterol: greater than 239 mg/dL LDL Cholesterol Calculated 140(H) <100 mg/dL [facility] Comment:Desirable LDL: less than 100 mg/dLNear Optimal/Above Optimal LDL: 110- 129 mg/dLBorderline High LDL: 130-159 mg/dLHigh LDL: 160-189 mg/dLVery High LDL: greater than or equal to 190 mg/dL HDL Cholesterol 53 >40 mg/dL [facility] Comment:Desirable HDL: great er than 40 mg/dL Note: This HDL assay may give artificially low results in patients with liver disease. Blood Venous blood specimen / Unknown 03/06/2024 1:23 PM EST 03/06/2024 4:00 PM EST [facility] LAB BLOOD ORDERABLES Final Re sult Performing Organization Address [facility]/ZIP Co de Phone Number [facility] [address] [place] [address] [phone] from Last 3 Months or Most Recently Relevant to Health Maintenance Insurance HSN PARTIAL [facility] C3 Care Teams Retail Sales Assistant Relationship Specialty Start Date End Date Birdie Clayton FNP [address] [place] [address] PCP - General Family Medicine 05/03/22
[2024-10-12 13:38] LABS: MANUAL DIFF FLAG NO
[2024-10-12 13:56] LABS: Hematocrit 42.8 % (37.0-47.0); Hemoglobin 13.8 g/dl (12.0-16.0); Imm Gran Abs Auto 0.04 X10*3/uL (0.00-0.03); Imm Gran Pct Auto 0.5 % (0.0-0.4); Lymphocytes Absolute Auto 2.5 X10*3/uL (1.2-4.9); Mean Corpuscular HGB Conc 32.2 g/dl (31.0-35.0); Mean Corpuscular Hemoglobin 27.5 pg (27.0-33.0); Mean Corpuscular Volume 85.4 fL (80.0-98.0); NRBC Abs Auto 0.000 X10*3/uL (0.0-0.012); NRBC Pct Auto 0.0 /100WBC (0.0-0.2); Platelet Count 295 X10*3/uL (160-400); Red Blood Count 5.01 X10*6/uL (4.20-5.50); White Blood Count 8.2 X10*3/uL (4.8-10.8)
[2024-10-12 14:31] LABS: Alanine Aminotransferase 20 U/L (0-31); Albumin Level 4.8 g/dL (3.5-5.0); Alkaline Phosphatase 99 U/L (39-117); Anion Gap 12 (12-20); Aspartate Amino Transferase 24 U/L (5-31); Blood Urea Nitrogen 10 mg/dL (9-16); Calcium 9.5 mg/dL (8.4-10.2); Carbon Dioxide 27 mmol/L (22-29); Chloride 105 mmol/L (96-108); Cholesterol 232 mg/dL (<200); Estimated Glomerular Filt Rate > 60; HDL Cholesterol 45 mg/dL (>40); Potassium 4.0 mmol/L (3.3-5.1); Sodium 140 mmol/L (135-145); Total Protein 7.7 g/dL (6.5-8.0); Triglycerides 224 mg/dL (<150)
== END 2024-10-12 12:15 | disposition home or self-care (01) ==
LOC: HO.HHCL 12:14
PROVIDERS: PCP Registered Nurse; Visit Provider Registered Nurse Psychiatric/Mental Health
DX: Z51.81 Encounter for therapeutic drug level monitoring (principal); Z79.899 Other long term (current) drug therapy
CPT/HCPCS: 36415; 80053; 80061; 82248; 84443; 85025

== ENCOUNTER 2024-10-29 09:55 | Outpatient (AMB) | payer MEDICAID, SELFPAY ==
--- NOTE | 2024-10-29 10:12 | MHC.OFFVIS ---
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 Patient was referred by her visiting home nurse. Patient's daughter states that for the past ten years she has had lower back pain. She reports that for the past few months her lower back pain is now radiating into the right hip into her thigh. Patient's daughter states that she does have numbness and tingling. Patient's daughter stated that she fell two weeks ago, she reports that the right leg gave out on her. No physical therapy or injections but she has tried at home exercises. Embedded Software Programmer Required: Yes Embedded Software Programmer Services: Embedded Software Programmer Offered & Declined Embedded Software Programmer Name: Lesa- Daughter Allergies latex Allergy (Intermediate, Verified 10/29/24 10:21) Rash HPI Comments Details: Previously seen by Orthopedics Maryjo BALES for right hip pain. Referred to physiatry for further evaluation of lower back pain. Right hip x-ray was unremarkable. Chronic back pain, she says years. First time to see a specialist for back pain. Denies previous imaging, PT, injections. Pain is right sided, down to knee and calf. It's been bad like this for 3 months. Denies injury that started it. Can't walk or put sneakers on. Can't sit on the right side. Limps from pain. Denies numbness on leg. She takes gabapentin, started while she was in [place], chronic/years. History of HTN, high cholesterol, asthma, gastritis. Denies DM, kidney issues. [facility] Medical History Anxiety GERD (gastroesophageal reflux disease) HTN (hypertension) Elevated cholesterol Muscle spasms of both lower extremities Sciatica Arthritis Depression Surgical History Hx laparoscopic cholecystectomy Hx of section Social History Alcohol intake: current Alcohol intake frequency: holidays/special occasions only Patient Tobacco Use Status: Current everyday Tobacco user Cigarettes Per Day: 2 Substance Use Type: Marijuana Current occupational status: disabled Current occupation: right hand dominant Review of Systems Const All systems reviewed & are unremarkable except as noted in HPI and below Physical Exam Exam Exam: Constitutional: Patient appears to be in no acute distress, well nourished and well developed. Patient was appropriately conversant and oriented. Good historian. MSK: No specific abnormalities found on inspection of the spine and all extremities. No pain with palpation over the lumbar area. Denied tenderness over spinous processes or facets. Focal tenderness over right SI joint. She was very uncomfortable to do JAZIEL or SLR. Neurological: Give-way weakness in right leg due to pain. Reflexes for normal and symmetric. Hinton?s negative bilaterally. Babinski was down going bilaterally. Clonus was negative. Gait is antalgic without loss of balance. Vital Signs: BMI result Body Mass Index 32.9 Results Reviewed Results Reviewed: Ordering Physician: Maryjo Castro PA-C Date of Service: 08/31/24 Procedure(s): XR hip RT min 2V Accession Number(s): [id number] cc: Maryjo Castro PA-C~ EXAMINATION: XR HIP 2 OR MORE VIEWS RIGHT HISTORY: M25.559 - Pain in unspecified hip COMPARISON: There are no prior studies available for comparison. FINDINGS: A single AP view of the pelvis and two views of the right hip are submitted. Osseous mineralization is normal. There is no fracture or dislocation. The joint space is maintained. The soft tissues are unremarkable. XR/XR hip RT min 2V IMPRESSION: Unremarkable examination of the right hip. Electronically signed by: Pedro Delgado MD 08/31/2024 12:58 PM EDT I reviewed records from the following: Ortho Assessment & Plan Assessment & Plan (1) Pain of right sacroiliac joint: Code(s): M53.3 - Sacrococcygeal disorders, not elsewhere classified Category: Medical (2) Chronic back pain: Code(s): M54.9 - Dorsalgia, unspecified; G89.29 - Other chronic pain Category: Medical Qualifiers: Back pain location: low back pain Back pain laterality: right Sciatica presence: with sciatica Sciatica laterality: sciatica of right side Qualified Code(s): M54.41 - Lumbago with sciatica, right side; G89.29 - Other chronic pain Plan Exam shows focal tenderness over right SI joint. However lumbar radiculitis still within differential because of her symptoms. Send her for lumbar x-rays today. Start physical therapy to work on SI joint and right leg strength. We considered starting her on NSAIDs but patient did not want to restart medications that did not work for her in the past and she has history of gastritis. Assessment and plan discussed with patient, and patient was agreeable. All questions were answered thoroughly. Follow up 6 weeks or sooner if needed. Carmencita Wilson MD, ONE[place] Board Certified, [place] Board of Physical Medicine and Rehabilitation (ABPMR) Board Certified, [place] Board of Electrodiagnostic Medicine (ABEM) Orders: Orders XR lumbar spine 2-3V Today M54.9 - Dorsalgia, unspecified PT Evaluation and Treatment Today G89.29 - Other chronic pain, M53.3 - Sacrococcygeal disorders, not elsewhere classified, M54.9 - Dorsalgia, unspecified Coding Level of Care Code New Pt Level 4 (95372) Diagnoses Pain of right sacroiliac joint M53.3 Chronic right-sided low back pain with right-sided sciatica M54.41; G89.29 Back pain location: low back pain Back pain laterality: right Sciatica presence: with sciatica Sciatica laterality: sciatica of right side
[2024-10-29 10:20] VITALS: BMI 32.9
--- OUTSIDE RECORDS SUMMARY | 2024-10-29 11:51 | XMS_ITS | Clinical Summary ---
Author Organization [employer] Address [address] [facility] 7t [place] [address] Care Team Providers Care Aircraft Painter Apprentice Name Role Phone Birdie Clayton [facility] Primary Care Provider [phone] Allergies No known active allergies Medications * [...] Plan (04/30/2024 9:36 AM EDT): Patient of [facility] here for a physical exam required by [...] organization. Date Type Department Care Team Description 10/22/2024 Telephone [facility] MEDICINE [address] [place] [phone] Birdie Clayton FNP Medication Question; med list 10/15/2024 Telephone [facility] [place] [address] Birdie Clayton FNP Nurse Triage 09/17/2024 Telephone [facility] [place] [address] Birdie Clayton FNP chart prep 09/14/2024 Patient Outreach [facility] [place] [address] Birdie Clayton FNP Pre-visit Planning ([facility] screening is completed) 08/04/2024 Travel from Last 3 Months Immunizations Immunization [...] Description 11/06/2024 11:00 AM EDT Office Visit [facility] MEDICINE [address] [place] [address] [place], Birdie, WOOL D[place]ER [address] [place] [address] 11/12/2024 10:30 AM EDT Office Visit [facility] OPTOMETRY [address] [place] [address] Meenakshi Laws, OD [address] [place] [address] Health Maintenance Due Date Last Done Comments [...] Bitewings 04/03/2023 04/02/2022 COVID-19 Vaccine (2 - 2024-2 6 season) 2024 03/08/2022 Influenza Vaccine (#1) 2024 , 10/30/2019 [...] Procedure Name Priority Date/Time Associated Diagnosis Comments HPV DNA, LOW/HIGH RISK Routine 06/02/2024 11:12 [...] Recently Relevant to Health Maintenance Results * HPV DNA, Low/High Risk (06/02/2024 11:12 AM EDT) HPV High Risk Negative Negative [facility] HPV Genotype 16 Negative Negative [facility] HPV Genotype 18 Negative Negative [facility] Comment:HPV testing performe d at [facility] (CLIA#[id number]), [address] [place] [address].Testing for HPV was performed using the Leonel DAYAMI Gastrofy0system. The presence of HPV in the female [...] 06/03/2024 8:20 AM EDT us Silvino Graham [facility] LAB BLOOD ORDERABLES Ana l Result [facility] [address] [place] [phone] * Pap Smear (06/02/2024 11:12 AM EDT) Swab Cervix uteri structure / Unknown 06/02/2024 11:12 AM EDT 06/03/2024 8:20 AM EDT Narrative [facility] - 06/08/2024 9:48 AM EDT ----- ------- Name: Flaca Ryder Age/Sex: 53/F : 1970 Unit#: [id number] Bud Dr: Re06/02/24 Status: PRE REF Location: [facility] Disch: ----- ------- SPEC : [id number] RECD: 06/03/24 STATUS: JOSÉ BLANCHARD NUM: [id number] JEAN CLAUDE: 06/02/24-[address] [facility] [address]: SILVINO GRAHAM CNM ENTERED: 06/03/2436 SP TYPE: Pap Smr OTHR : ORDERED: Pap Smear Interpretation Satisfactory for [...] ----- ------- END OF REPORT Silvino Graham CNM LAB CYTOLOGY ORDERABLES F inal Result [facility] [address] [place] [phone] * Hepatitis C Antibody with Reflex to HCV, RNA, Quantitative, Real-Time PCR (03/06/2024 1:23 PM EST) Hepatitis C Antibody Nonreactive Nonreactive [facility] Comment:Antibodies to HCV no t detected; does not exclude early acuteHCV infection. Blood Venous blood specimen / Unknown 03/06/2024 1:23 PM EST 03/06/2024 4:00 PM EST [facility] LAB BLOOD ORDERABLES Final Re sult Performing Organization Address [facility] Co de Phone Number [facility] [address] [place] [address] [phone] * HIV-1/2 Antigen and Antibodies, Fourth Generation, with Reflexes (03/06/2024 1:23 PM EST) Pathologist [facility] HIV AB/AG Nonreactive Nonreactive [facility] Comment:HIV-1 p24 Ag and/or HIV-1/HIV-2 Ab not detected.A test result that is nonreactive does not exclude thepossibility of exposure to or infection with HIV-1 and/orHIV-2. Nonreactive results in this assay for individualswith prior exposure to HIV-1 and/or HIV-2 may be due toantigen and antibody levels that are below the limit ofdetection of this assay.The EuclidniaaTag HIV Ag/Ab Combo assay result andsupplemental assay results should be interpreted inconjunction with the patient's clinical presentation,history and other laboratory results. If the results areinconsistent with clinical evidence, additional testing issuggested to confirm the result. Blood Venous blood specimen / Unknown 03/06/2024 1:23 PM EST 03/06/2024 4:00 PM EST [facility] LAB BLOOD ORDERABLES Final Re sult Performing Organization Address [facility]/ZIP Co de Phone Number [facility] [address] [place] [phone] [phone] * (ABNORMAL) Lipid Panel, Standard (03/06/2024 1:23 PM EST) Triglycerides 179(H) <150 mg/dL [facility] Comment:Desirable Triglyceri de: less than 150 mg/dLBorderline High Triglyceride 150-199 mg/dLHigh Triglyceride: 200-499 mg/dLVery High Triglyceride: greater than or equal to 5OO mg/dL Cholesterol 228(H) <200 mg/dL [facility] Comment:Desirable Cholestero l: less than 200 mg/dLBorderline High Cholesterol: 200-239 mg/dLHigh Cholesterol: greater than 239 mg/dL LDL Cholesterol Calculated 140(H) <100 mg/dL [facility] Comment:Desirable LDL: less than 100 mg/dLNear Optimal/Above Optimal LDL: 110- 129 mg/dLBorderline High LDL: 130-159 mg/dLHigh LDL: 160-189 mg/dLVery High LDL: greater than or equal to 190 mg/dL HDL Cholesterol 53 >40 mg/dL [facility] Comment:Desirable HDL: great er than 40 mg/dL Note: This HDL assay may give artificially low results in patients with liver disease. Blood Venous blood specimen / Unknown 03/06/2024 1:23 PM EST 03/06/2024 4:00 PM EST [facility]OL DYER LAB BLOOD ORDERABLES Final Re sult [facility] [address] [place] [address] [phone] from Last 3 Months or Most Recently Relevant to Health Maintenance Insurance HSN PARTIAL [facility] C3 Care Teams Aircraft Painter Apprentice Relationship Specialty Start Date End Date Birdie Clayton FNP [address] [place] [phone] PCP - General Family Medicine 05/03/22
--- OUTSIDE RECORDS SUMMARY | 2024-10-29 11:51 | XMS_ITS | Encounter Summary ---
Author Organization [employer] Address [address] [facility] 7t [place] [address] Care Team Providers Care Office Communication Professor Name Role Phone Birdie Clayton SUSTAINABLE AGRICULTURE SPECIALIST Primary Care Provider [phone] Encounter Details Date Type Department Care Team (Late st Contact Info) Description 01/15/2023 Abstract [facility] [address] [place] [address] Justyna Couch Social History Tobacco Use Types [...] Description 11/06/2024 11:00 AM EDT Office Visit [facility] [address] [place] [address] Birdie Clayton FNP [address] [place] [address] 11/12/2024 10:30 AM EDT Office Visit [facility] OPTOMETRY [address] [place] [address] TarkaMeenakshi, OD [address] [place] [address] documented as of this encounter Visit Diagnoses Not on filedocumented in this encounter Additional Health Concerns Assessment Noted Time PHQ-9 Depression Total Score: 24 023 9:22 AM EDT documented as of this encounter Care Teams Office Communication Professor Relationship Specialty Start Date End Date Birdie Clayton FNP [address] [place] [address] PCP - General Family Medicine 05/03/22 documented as of this encounter
--- OUTSIDE RECORDS SUMMARY | 2024-10-29 11:51 | XMS_ITS | Encounter Summary ---
Author Organization [employer] Address [address] [facility] 7t [place] [address] Care Team Providers Care Flight Inspector Name Role Phone Birdie Clayton GRANULATOR Primary Care Provider [phone] Reason for Referral * Consultation (Routine) - Closed Specialty Diagnoses / Procedures Referred By Contac t Referred To Contact Pharmacy Diagnoses Tobacco use Elvi Phillips MD [address] [place] [address] Phone: tel: fax: Referral ID Status Reason Start Date Expiration Date V isits Requested Visits Authorized [id number] Closed Consult and Treat 06/03/2024 06/03/2025 6 6 Encounter Details Date Type Department Care Team (Late st Contact Info) Description 06/03/2024 Orders Only [facility] MEDICINE [address] [place], [place] [phone] Elvi Phillips MD [address] [place], [place] [phone] Tobacco use (Primary Dx) Social History Tobacco Use Types [...] Description 11/06/2024 11:00 AM EDT Office Visit [facility] [address] [place] [address] [facility] [address] [place] [address] 11/12/2024 10:30 AM EDT Office Visit [facility] OPTOMETRY [address] [place] [address] Meenakshi Laws, OD [address] [place] [address] Scheduled Referrals Name Type Priority Associated Diagnoses Orde r Schedule Referral to Pharmacy CDTM Outpatient Referral Routine Tobacco use Ordered: 06/03/2024 documented as of this encounter Visit Diagnoses Diagnosis Tobacco use- Primary documented in this encounter Additional Health Concerns Assessment Noted Time PHQ-9 Depression Total Score: 11 06/01/ 025 10:35 AM EDT documented as of this encounter Care Teams Flight Inspector Relationship Specialty Start Date End Date Birdie Clayton FNP [address] [place] [address] PCP - General Family Medicine 05/03/22 documented as of this encounter
--- OUTSIDE RECORDS SUMMARY | 2024-10-29 11:51 | XMS_ITS | Encounter Summary ---
Author Organization [employer] Address [address] [facility] 7t [place] [address] Care Team Providers Care Operating System Designer Name Role Phone Birdie Clayton [facility] Primary Care Provider [phone] Reason for Visit * Reason Comments Med Refill Encounter Details Date Type Department Care Team ([facility] st Contact Info) Description 04/30/2024 Refill [facility] MEDICINE [address] [place], [place] [phone] Birdie Clayton [facility] [address] [place] [address] Anxiety Social History Tobacco Use Types Packs/Day [...] Description 11/06/2024 11:00 AM EDT Office Visit [facility] [address] [place] [address] Birdie Clayton FNP [address] [place] [address] 11/12/2024 10:30 AM EDT Office Visit [facility] OPTOMETRY [address] [place] [address] TarMeenakshi aragon, OD [address] [place] [address] documented as of this encounter Visit Diagnoses Diagnosis Anxiety Anxiety state, unspecified documented in this encounter Additional Health Concerns Assessment Noted Time PHQ-9 Depression Total Score: 24 024 10:11 AM EST documented as of this encounter Care Teams Operating System Designer Relationship Specialty Start Date End Date Birdie Clayton FNP [address] [place] [phone] PCP - General Family Medicine 05/03/22 documented as of this encounter
== END 2024-10-29 11:00 | disposition home or self-care (01) ==
LOC: HO.HOS 09:56
PROVIDERS: PCP Registered Nurse; Visit Provider Physical Medicine & Rehabilitation
DX: M53.3 Sacrococcygeal disorders, not elsewhere classified (principal); M54.41 Lumbago with sciatica, right side; G89.29 Other chronic pain
CPT/HCPCS: 99203

== ENCOUNTER 2024-10-29 09:55 | Outpatient (REF) | payer MEDICAID, SELFPAY ==
--- NOTE | ~2024-10-29 | XR_ITS ---
EXAMINATION: XR LUMBOSACRAL SPINE CLINICAL INFORMATION: M54.9 - Dorsalgia, unspecified COMPARISON: None available. TECHNIQUE: Three views of the lumbosacral spine. FINDINGS: Normal alignment. No compression fracture. Bridging marginal osteophytes in the lower thoracic spine. Small marginal osteophytes along the lumbar spine. Disc spaces are preserved. Sacroiliac joints are intact. XR/XR lumbar spine 2-3V IMPRESSION: Mild multilevel degenerative changes. Electronically signed by: Tatiana Lou MD 10/29/2024 01:51 PM EDT
== END 2024-10-29 09:56 | disposition home or self-care (01) ==
LOC: HO.HOSX 09:55
PROVIDERS: PCP Registered Nurse; Visit Provider Physical Medicine & Rehabilitation
DX: G89.29 Other chronic pain (principal); M54.41 Lumbago with sciatica, right side; M53.3 Sacrococcygeal disorders, not elsewhere classified
CPT/HCPCS: 72100; 99202

== ENCOUNTER → 2024-10-29 11:33 | Outpatient (BNV) | payer MEDICAID, SELFPAY | PROVIDERS: PCP Registered Nurse; Visit Provider Radiology Body Imaging | DX: M25.78 Osteophyte, vertebrae (principal) | CPT/HCPCS: 72100 ==

== ENCOUNTER 2024-11-26 10:27 | Outpatient (AMB) | payer MEDICAID, SELFPAY ==
--- NOTE | 2024-11-26 10:40 | A.OFFVIS_ITS ---
Intake Visit Reasons: New prob- Cervical Pain and LBP per RBL Intake Note: Flaca is a 54 year old female who presents today as a new problem for her Cervical Pain and lower back pain. At today's visit she states that 23 years ago she fell down the stairs and ever since then the pain radiates down the legs. She states that for the past four years she has had increased lower back pain that is now radiating into the hips, right buttocks and right thigh. Patient states that within the past two months she had two falls, felt very unstable while walking. Patient states that she would like to discuss at home exercises and she does not want to attended physical therapy at a location. She would like to discuss to get a MRI and if she could get a walker/cane to help with her mobility. Patient added that she would like to discuss if she can get ibuprofen 800. Real Time Operator Required: Yes Allergies latex Allergy (Intermediate, Verified 11/26/24 10:49) Rash Medication List - Last Reconciled 11/26/24 by Carmencita Wilson MD budesonide-formoterol 80-4.5 mcg/actuation (Symbicort) 2 puffs inhalation Q4-6H PRN escitalopram oxalate 10 mg PO DAILY gabapentin 300 mg PO TID lisinopril 10 mg PO DAILY rosuvastatin 10 mg PO DAILY HPI Comments Details: Previously seen by Orthopedics Maryjo BALES for right hip pain. Referred to physiatry for further evaluation of lower back pain. Right hip x-ray was unremarkable. Chronic back pain, she says years. First time to see a specialist for back pain. Denies previous imaging, PT, injections. Pain is right sided, down to knee and calf. It's been bad like this for 3 months. Denies injury that started it. Can't walk or put sneakers on. Can't sit on the right side. Limps from pain. Denies numbness on leg. She takes gabapentin, started [place] she was in [place], chronic/years. History of HTN, high cholesterol, asthma, gastritis. Denies DM, kidney issues. She maintains today that her main issue is the right lower back pain, radiating down to the right leg. It is worse with sitting and getting up from seated position. Ibuprofen and other NSAIDs have not been helpful. X-ray done did show degenerative changes although disc spaces were preserved. She is unable to do physical therapy due to the amount of pain. She is already taking gabapentin and melatonin. [facility] Medical History Anxiety GERD (gastroesophageal reflux disease) HTN (hypertension) Elevated cholesterol Muscle spasms of both lower extremities Sciatica Arthritis Depression Surgical History Hx laparoscopic cholecystectomy Hx of section Social History Alcohol intake: current Alcohol intake frequency: holidays/special occasions only Patient Tobacco Use Status: Current everyday Tobacco user Cigarettes Per Day: 2 Substance Use Type: Marijuana Current occupational status: disabled Current occupation: right hand dominant Physical Exam Exam Exam: Constitutional: Patient appears to be in no acute distress, well nourished and well developed. Patient was appropriately conversant and oriented. Good historian. MSK: No specific abnormalities found on inspection of the spine and all extremities. No pain with palpation over the lumbar area. Denied tenderness over spinous processes or facets. Focal tenderness over right SI joint. No knee swelling. No calf tenderness. No pedal edema. Neurological: Give-way weakness in right leg due to pain. Reflexes for normal and symmetric. [place]?s negative bilaterally. Babinski was down going bilaterally. Clonus was negative. Gait is antalgic without loss of balance. Results Reviewed Results Reviewed: Ordering Physician: Carmencita Phelps Date of Service: 10/29/24 Procedure(s): XR lumbar spine 2-3V Accession Number(s): [id number] cc: Carmencita Phelps; [facility]~ Reason for Exam: M54.9 - Dorsalgia, unspecified EXAMINATION: XR LUMBOSACRAL SPINE CLINICAL INFORMATION: M54.9 - Dorsalgia, unspecified COMPARISON: None available. TECHNIQUE: Three views of the lumbosacral spine. FINDINGS: Normal alignment. No compression fracture. Bridging marginal osteophytes in the lower thoracic spine. Small marginal osteophytes along the lumbar spine. Disc spaces are preserved. Sacroiliac joints are intact. XR/XR lumbar spine 2-3V IMPRESSION: Mild multilevel degenerative changes. Electronically signed by: Tatiana Lou MD 10/29/2024 01:51 PM EDT RP Assessment & Plan Assessment & Plan (1) Lumbar radiculopathy, right: Code(s): M54.16 - Radiculopathy, lumbar region Category: Medical (2) Pain of right sacroiliac joint: Code(s): M53.3 - Sacrococcygeal disorders, not elsewhere classified Category: Medical (3) Chronic back pain: Code(s): M54.9 - Dorsalgia, unspecified; G89.29 - Other chronic pain Category: Medical Qualifiers: Back pain laterality: right Back pain location: low back pain Sciatica laterality: sciatica of right side Sciatica presence: with sciatica Qualified Code(s): M54.41 - Lumbago with sciatica, right side; G89.29 - Other chronic pain Plan Patient had undergone adequate conservative management without improvement of condition. It would be reasonable to obtain further imaging such as MRI. An MRI would help rule out any serious condition, guide treatment and assess prognosis for recovery. Specifically ruling out right L4-5 or L5-S1 disc herniation with nerve compression. She is unable to do physical therapy due to pain. Hold off on PT then. She is asking for something for pain. She is already on gabapentin and melatonin. We will add meloxicam 7.5 mg p.r.n. daily for pain. Discussed side effects and precautions. Assessment and plan discussed with patient, and patient was agreeable. All questions were answered thoroughly. Follow up after MRI. Carmencita Wilson MD, [facility] Board Certified, [place] Board of [employer] Medicine and Rehabilitation (ABPMR) Board Certified, [place] Board of Electrodiagnostic Medicine (ABEM) Orders: Orders MR lumbar spine wo con Today G89.29 - Other chronic pain, M53.3 - Sacrococcygeal disorders, not elsewhere classified, M54.16 - Radiculopathy, lumbar region, M54.41 - Lumbago with sciatica, right side Medications: New meloxicam 7.5 mg PO DAILY PRN 30 tabs 0RF pain Coding Level of Care Code Est Pt Level 4 (75813) Complex EM visit Add On G2211 Diagnoses Lumbar radiculopathy, right M54.16 Pain of right sacroiliac joint M53.3 Chronic right-sided low back pain with right-sided sciatica M54.41; G89.29 Back pain laterality: right Back pain location: low back pain Sciatica laterality: sciatica of right side Sciatica presence: with sciatica
== END 2024-11-26 11:14 | disposition home or self-care (01) ==
LOC: HO.HOS 10:27
PROVIDERS: PCP Registered Nurse; Visit Provider Physical Medicine & Rehabilitation
DX: M54.16 Radiculopathy, lumbar region (principal); M53.3 Sacrococcygeal disorders, not elsewhere classified; M54.41 Lumbago with sciatica, right side; G89.29 Other chronic pain
CPT/HCPCS: 99214

== ENCOUNTER → 2024-11-26 10:27 | Outpatient (BNVA) | payer MEDICAID, SELFPAY | PROVIDERS: PCP Registered Nurse; Visit Provider Physical Medicine & Rehabilitation | DX: M54.16 Radiculopathy, lumbar region (principal); M53.3 Sacrococcygeal disorders, not elsewhere classified; M54.41 Lumbago with sciatica, right side; G89.29 Other chronic pain | CPT/HCPCS: 99212 ==

== ENCOUNTER → 2024-12-20 10:14 | Outpatient (BNV) | payer MEDICAID, SELFPAY | PROVIDERS: PCP Registered Nurse; Visit Provider Radiology Diagnostic Radiology | DX: M54.16 Radiculopathy, lumbar region (principal) | CPT/HCPCS: 72148 ==

== ENCOUNTER 2024-12-20 10:16 | Outpatient (REF) | payer MEDICAID, SELFPAY ==
--- NOTE | ~2024-12-20 | MR_ITS ---
EXAMINATION: MR LUMBAR SPINE WITHOUT CONTRAST CLINICAL INFORMATION: M 54.16. Radiculopathy, lumbar region. Evaluate right L4-5 or L5-S1 disc herniation. COMPARISON: None available. TECHNIQUE: MRI of the lumbar spine was obtained using routine sequences without contrast. FINDINGS: Last rib-bearing vertebra labeled T12. No bone marrow STIR signal abnormality. There is disc desiccation, L5-S1 and to a lesser extent L4-5. There is normal alignment. Conus medullaris ends at pedicle of L1 with normal signal. T12-L1: Broad-based disc bulging. No compression upon neural elements. L1-2: Broad-based disc bulging. No compression upon neural elements. L2-3: Broad-based disc bulging. No compression upon neural elements. L3-4: Broad-based disc bulging. Facet joint hypertrophy. No compression upon neural elements. L4-5: Broad-based disc bulging abutting the L5 nerve roots on the lateral recesses. Bilateral facet joint hypertrophy. Bilateral neuroforamina stenosis encroaching the L4 exiting nerve roots. L5-S1: There is a broad-based central right subarticular and foraminal herniated disc compressing the right S1 nerve root and abutting the left S1 and right L5 nerve roots. There is central spinal canal stenosis. Bilateral facet joint hypertrophy. Bilateral neuroforamina stenosis compressing the L5 nerve roots bilaterally. No prevertebral compartment hematoma, mass or fluid collections. There is a 1.5 cm cystic lesion, left kidney. MR/MR lumbar spine wo con IMPRESSION: Large broad-based central, right subarticular and foraminal disc herniation L5-S1 compressing the right S1 as well at the L5 nerve roots bilaterally and abutting the left S1 on its lateral recess. 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 Electronically signed by: Brigido Basilio MD 12/21/2024 06:50 AM EST
--- OUTSIDE RECORDS SUMMARY | 2024-12-20 10:19 | XMS_ITS | Encounter Summary ---
Author Organization [employer] Address [address] [facility] 7t [place] [address] Care Team Providers Care Resident Care Coordinator Name Role Phone Birdie Clayton MEDICAL TRANSLATOR Primary Care Provider [phone] Encounter Details Date Type Department Care Team (Late st Contact Info) Description 01/15/2023 Abstract [facility] MEDICINE [address] [place] [address] Justyna Couch Social History Tobacco Use Types [...] Care Team (Late st Contact Info) Description 01/22/2025 11:00 AM EST Office Visit [facility] MEDICINE [address] [place] [address] Birdie Clayton FNP [address] [place] [address] documented as of this encounter Visit Diagnoses Not on filedocumented in this encounter Additional Health Concerns Assessment Noted Time PHQ-9 Depression Total Score: 24 023 9:22 AM EDT documented as of this encounter Care Teams Resident Care Coordinator Relationship Specialty Start Date End Date Birdie Clayton FNP [address] [place] [address] PCP - General Family Medicine 05/03/22 documented as of this encounter
--- OUTSIDE RECORDS SUMMARY | 2024-12-20 10:19 | XMS_ITS | Clinical Summary ---
Author Organization [employer] Address [address] [facility] 7t [place] [address] Care Team Providers Care Ground Source Heat Pump Technician Name Role Phone Birdie Clayton [facility] Primary Care Provider [phone] Allergies No known active allergies Medications * [...] the same time. 30 patch 5 Active polyethylene glycol, PEG, 3350 (Glycolax) 17 GM/SCOOP powderIndications: External thrombosed hemorrhoids Mix 17g (1 capful) in 8 ounces of water and take by mouth every day 510 g 2 5 Active celecoxib (CeleBREX) 100 MG capsuleIndications :Chronic right-sided low back pain with right-sided sciatica Take 1 capsule (100 mg) by mouth 2 times daily. 60 capsule 11 5 11/07/19 26 Active busPIRone (Buspar) 10 MG tablet Take 1 tablet by mouth Once per day. 5 Active hydrOXYzine HCl (Atarax) 10 MG tablet Take 1 tablet by mouth every 6 (six) hours during the day. 5 Active sertraline (Zoloft) 25 MG tablet Take 1 tablet by mouth Once per day. 5 Active Active Problems Problem Noted Date [...] Plan (04/30/2024 9:36 AM EDT): Patient of [facility] here for a physical exam required by [...] organization. Date Type Department Care Team Description 11/12/2024 Telephone [facility] OPTOMETRY [address] [place], [place] [phone] Meenakshi Laws OD 11/06/2024 11:00 AM EDT Office Visit [facility] MED[facility]INE [address] [place], [place] [phone] Birdie Clayton FNP Chronic right-sided low back pain with right-sided sciatica (Primary Dx); Essential hypertension; Mixed hyperlipidemia 11/06/2024 Travel 10/29/2024 Orders Only [facility] External Provider, [facility] 10/22/2024 Telephone [facility] MED[facility]INE [address] [place] [address] Birdie Clayton FNP Medication Question; med list 10/15/2024 Telephone [facility] [address] [place], [place] [phone] Birdie Clayton FNP Nurse Triage from Last 3 Months Immunizations Immunization Administration [...] PM EST Sexual Orientation Don't know 03/13/2022 1 :16 PM EST Last Filed Vital Signs Vital Sign Reading Time Taken Comments Blood Pressure 118/82 11/06/2024 10:45 AM EDT Pulse 71 11/06/2024 10:45 AM EDT Temperature 36.4 C (97.5 F) 11/06/2024 10:45 AM EDT Respiratory Rate 17 11/06/2024 10:45 AM EDT Oxygen Saturation 98% 11/06/2024 10:45 AM EDT Inhaled Oxygen Concentration - - Weight 81.4 kg (179 lb 6.4 oz) 11/06/2024 10:45 AM EDT Height 154.9 cm (5' 1 ) 11/06/2024 10:45 AM EDT Body Mass Index 33.9 11/06/2024 10:45 AM EDT Plan of Treatment Upcoming Encounters Date Type Department Care Team (Late st Contact Info) Description 01/22/2025 11:00 AM EST Office Visit [facility] MED[facility]INE [address] [place] [address] MyerstownBirdie, LEAD RUBY ON RAILS DEVELOPER [address] [place] [address] Health Maintenance Due Date Last Done Comments [...] Alcohol/Substance Use Screening 04/30/2025 04/30/2024 Tobacco Screening 11/08/2025 11/08/2024 Lipid Panel 03/06/2029 03/06/2024 Cervical Cancer Screening [...] Name Priority Date/Time Associated Diagnosis Comments XR LUMBAR SPINE 2-3 VIEWS Routine 10/29/2024 11:33 AM EDT HPV DNA, LOW/HIGH RISK Routine 06/02/2024 [...] Relevant to Health Maintenance Results * XR Lumbar Spine 2-3 Views (10/29/2024 11:33 AM EDT) Anatomical Region Laterality Modality Spine, L-spine Radiographic Lulu ging 10/29/2024 11:3 3 AM EDT Narrative 10/29/2024 1:54 PM EDT [facility] [address] [place] [address] XRay Report Signed Patient: Flaca Ryder MR#: [id number] : 1970 Acct:[id number] Age/Sex: 54 / F ADM Date: 10/29/24 Loc: [facility] Attending Dr: Carmencita Wilson MD Ordering Physician: Carmencita Phelps Date of Service: 10/29/24 Procedure(s): XR lumbar spine 2-3V Accession Number(s): [id number] cc: Carmencita Phelps; [facility] Reason for Exam: M54.9 - Dorsalgia, unspecified EXAMINATION: XR LUMBOSACRAL SPINE CLINICAL INFORMATION: M54.9 - Dorsalgia, unspecified COMPARISON: None available. TECHNIQUE: Three views of the lumbosacral spine. FINDINGS: Normal alignment. No compression fracture. Bridging marginal osteophytes in the lower thoracic spine. Small marginal osteophytes along the lumbar spine. Disc spaces are preserved. Sacroiliac joints are intact. XR/XR lumbar spine 2-3V IMPRESSION: Mild multilevel degenerative changes. Electronically signed by: Tatiana Lou MD 10/29/2024 01:51 PM EDT RP Dictated By: Tatiana Lou MD Signed By: <Electronically signed by Tatiana Lou MD in OV> 10/29/24 1351 DD/ 1133 TD/TT: 10/29/24 1135 Helper Marble Finisher: Procedure Note Donotuseinterpreter, Image - 10/29/2024 [facility] [address] [place] [address] XRay Report Signed Patient: Flaca RyderMR#: [id number] : 1970Acct:[id number] Age/Sex: 54 / FADM Date: 10/29/24 Loc: THEA Attending Dr: Carmencita Wilson MD Ordering Physician: Carmencita Phelps Date of Service: 10/29/24 Procedure(s): XR lumbar spine 2-3V Accession Number(s): [id number] cc: [facility] Reason for Exam: M54.9 - Dorsalgia, unspecified EXAMINATION: XR LUMBOSACRAL SPINE CLINICAL INFORMATION: M54.9 - Dorsalgia, unspecified COMPARISON: None available. TECHNIQUE: Three views of the lumbosacral spine. FINDINGS: Normal alignment. No compression fracture. Bridging marginal osteophytes in the lower thoracic spine. Small marginal osteophytes along the lumbar spine. Disc spaces are preserved. Sacroiliac joints are intact. XR/XR lumbar spine 2-3V IMPRESSION: Mild multilevel degenerative changes. Electronically signed by: Tatiana Lou MD 10/29/2024 01:51 PM EDT RP Dictated By: Tatiana Lou MD Signed By: <Electronically signed by Tatiana Lou MD in OV> 10/29/24 1351 DD/ 1133 TD/TT: 10/29/24 1135 Helper Marble Finisher: [facility] External Provider IMG XR PROCEDURES Final Result * HPV DNA, Low/High Risk (06/02/2024 11:12 AM EDT) HPV High Risk Negative Negative [facility] HPV Genotype 16 Negative Negative [facility] HPV Genotype 18 Negative Negative [facility] Comment:HPV testing performe d at [facility] (CLIA#[id number]), [address] [place] [address].Testing for HPV was performed using the Leonel [...] [facility] LAB BLOOD ORDERABLES Ana rojas Result [facility] [address] [place] [phone] * Pap Smear (06/02/2024 11:12 AM EDT) Swab Cervix uteri structure / Unknown 06/02/2024 11:12 AM EDT 06/03/2024 8:20 AM EDT Narrative [facility] - 06/08/2024 9:48 AM EDT ----- ------- Name: Flaca Ryder Age/Sex: 53/F : 1970 Unit#: [id number] Attend Dr: Re06/02/24 Status: PRE REF Location: [facility] Disch: ----- ------- SPEC : [id number] RECD: 06/03/24 STATUS: JOSÉ BLANCHARD NUM: [id number] JEAN CLAUDE: 06/02/24-[address]: SILVINO GRAHAM [...] 0948 ----- ------- END OF REPORT Silvino LONG LAB CYTOLOGY ORDERABLES F inal Result Performing Organization Address [facility] Co de Phone Number [facility] [address] [place] [phone] * Hepatitis C Antibody with Reflex to HCV, RNA, Quantitative, Real-Time PCR (03/06/2024 1:23 PM EST) Hepatitis C Antibody Nonreactive Nonreactive [facility] Comment:Antibodies to HCV no t detected; does not exclude early acuteHCV infection. Blood Venous blood specimen / Unknown 03/06/2024 1:23 PM EST 03/06/2024 4:00 PM EST [facility] LAB BLOOD ORDERABLES Final Re sult Performing Organization Address [facility] Co de Phone Number [facility] [address] [place] [address] [phone] * HIV-1/2 Antigen and Antibodies, Fourth Generation, with Reflexes (03/06/2024 1:23 PM EST) HIV AB/AG Nonreactive Nonreactive [facility] Comment:HIV-1 p24 Ag and/or HIV-1/HIV-2 Ab not detected.A test result that is nonreactive does not exclude thepossibility of exposure to or infection with HIV-1 and/orHIV-2. Nonreactive results in this assay for individualswith prior exposure to HIV-1 and/or HIV-2 may be due toantigen and antibody levels that are below the limit ofdetection of this assay.The [employer] HIV Ag/Ab Combo assay result andsupplemental assay results should be interpreted inconjunction with the patient's clinical presentation,history and other laboratory results. If the results areinconsistent with clinical evidence, additional testing issuggested to confirm the result. Blood Venous blood specimen / Unknown 03/06/2024 1:23 PM EST 03/06/2024 4:00 PM EST [facility] LAB BLOOD ORDERABLES Final Re sult [facility] [address] [place] [phone] * (ABNORMAL) Lipid Panel, Standard (03/06/2024 1:23 PM EST) Triglycerides 179(H) <150 mg/dL [facility] Comment:Desirable Triglyceri de: less than 150 mg/dLBorderline High Triglyceride 150-199 mg/dLHigh Triglyceride: 200-499 mg/dLVery High Triglyceride: greater than or equal to 5OO mg/dL Cholesterol 228(H) <200 mg/dL [facility] Comment:Desirable Cholestero l: less than 200 mg/dLBorderline High Cholesterol: 200-239 mg/dLHigh Cholesterol: greater than 239 mg/dL LDL Cholesterol Calculated 140(H) <100 mg/dL [facility] Comment:Desirable LDL: less than 100 mg/dLNear Optimal/Above Optimal LDL: 110- 129 mg/dLBorderline High LDL: 130-159 mg/dLHigh LDL: 160-189 mg/dLVery High LDL: greater than or equal to 190 mg/dL HDL Cholesterol 53 >40 mg/dL [facility] Comment:Desirable HDL: great er than 40 mg/dL Note: This HDL assay may give artificially low results in patients with liver disease. Blood Venous blood specimen / Unknown 03/06/2024 1:23 PM EST 03/06/2024 4:00 PM EST [facility] LAB BLOOD ORDERABLES Final Re sult [facility] Organization Address City/State/ZIP Co de Phone Number [facility] [address] [place] [address] [phone] from Last 3 Months or Most Recently Relevant to Health Maintenance [facility] [employer] Care Teams Ground Source Heat Pump Technician Relationship Specialty Start Date End Date Birdie Clayton LEAD RUBY ON RAILS DEVELOPER [address] [place] [phone] PCP - General Family Medicine 05/03/22
--- OUTSIDE RECORDS SUMMARY | 2024-12-20 10:19 | XMS_ITS | Encounter Summary ---
Author Organization [employer] Address [address] [facility] 7t [place] [address] Care Team Providers Care Market Development Executive Name Role Phone Birdie Clayton WRAPPER CASHIER Primary Care Provider [phone] Reason for Referral * Consultation (Routine) - Closed Specialty Diagnoses / Procedures Referred By Contac t Referred To Contact Pharmacy Diagnoses Tobacco use Elvi Phillips MD [address] [place] [address] Phone: tel: fax: Referral ID Status Reason Start Date Expiration Date V isits Requested Visits Authorized [id number] Closed Consult and Treat 06/03/2024 06/03/2025 6 6 Encounter Details Date Type Department Care Team (Late st Contact Info) Description 06/03/2024 Orders Only [facility] MEDICINE [address] [place], [place] [phone] Elvi Phillips MD [address] [place], [place] [phone] Tobacco use (Primary Dx) Social History Tobacco [...] Upcoming Encounters Date Type Department Care Team ([facility] st Contact Info) Description 01/22/2025 11:00 AM EST Office Visit [facility] MEDICINE [address] [place] [address] SpringBirdie [facility] [address] [place] [address] Scheduled Referrals Name Type Priority Associated Diagnoses Orde r Schedule Referral to Pharmacy CDTM Outpatient Referral Routine Tobacco use Ordered: 06/03/2024 documented as of this encounter Visit Diagnoses Diagnosis Tobacco use- Primary documented in this encounter Additional Health Concerns Assessment Noted Time PHQ-9 Depression Total Score: 11 06/01/ 025 10:35 AM EDT documented as of this encounter Care Teams Market Development Executive Relationship Specialty Start Date End Date SpringBirdie [facility] [address] [place] [address] PCP - General Family Medicine 05/03/22 documented as of this encounter
--- OUTSIDE RECORDS SUMMARY | 2024-12-20 10:19 | XMS_ITS | Encounter Summary ---
Author Organization [employer] Address [address] [facility] [address]t [place] [address] Care Team Providers Care Kosher Dietary Service Supervisor Name Role Phone Birdie lCayton [facility] Primary Care Provider [phone] Reason for Visit * Reason Comments Med Refill Encounter Details Date Type Department Care Team ([facility] st Contact Info) Description 04/30/2024 Refill [facility] MEDICINE [address] [place], [place] [phone] Birdie Clayton [facility] [address] [place] [address] Anxiety Social History Tobacco Use Types Packs/Day [...] Description 01/22/2025 11:00 AM EST Office Visit [facility] MEDICINE [address] [place] [address] Birdie Clayton FNP [address] [place] [address] documented as of this encounter Visit Diagnoses Diagnosis Anxiety Anxiety state, unspecified documented in this encounter Additional Health Concerns Assessment Noted Time PHQ-9 Depression Total Score: 24 024 10:11 AM EST documented as of this encounter Care Teams Kosher Dietary Service Supervisor Relationship Specialty Start Date End Date Birdie Clayton FNP [address] [place] [address] PCP - General Family Medicine 05/03/22 documented as of this encounter
== END 2024-12-20 10:17 | disposition home or self-care (01) ==
LOC: HO.MRI 10:16
PROVIDERS: PCP Registered Nurse; Visit Provider Physical Medicine & Rehabilitation
DX: M54.16 Radiculopathy, lumbar region (principal); M53.3 Sacrococcygeal disorders, not elsewhere classified; M54.41 Lumbago with sciatica, right side; G89.29 Other chronic pain
CPT/HCPCS: 72148